=== PATIENT | female | born 1940 | race Caucasian/White ===

== ENCOUNTER 2019-11-29 01:00 | Observation (INO) | payer OTHER, SELFPAY ==
[2019-11-29] VITALS (12 sets, daily range): BP systolic 103–142; BP diastolic 45–70; PULSE 64–100; RESP 15–18; TEMP 36–36.8; O2SAT 90–96; BMI 28.8
--- NOTE | ~2019-11-29 | US_ITS ---
EXAMINATION: US right upper quadrant DATE: 11/29/2019 08:05 INDICATION: Right upper quadrant abdominal pain. TECHNIQUE: Multiple grayscale and Doppler ultrasound images of the abdomen were obtained. COMPARISON: CT abdomen and pelvis 11/29/2019 FINDINGS: The visualized portions of the head, body, and tail of the pancreas are normal. The liver d emonstrates diffuse steatosis. No liver surface nodularity. There is normal flow in main portal vein. The gallbladder is normal in size and contains gallstones. Gallbladder wall thickening is noted. The common duct is normal and measures 4 mm. IMPRESSION: 1. Acute cholecystitis. 2. Diffuse hepatic steatosis. Reviewed, dictated and finalized at location A.
--- NOTE | ~2019-11-29 | CT_ITS ---
EXAMINATION: CT abdomen pelvis w con INDICATION: Right upper quadrant pain TECHNIQUE: Computed tomographic images of the abdomen and pelvis were obtained after the administrati on of 100 cc of Omnipaque 350 intravenous contrast. The dose-length product (DLP) was 514.95 mGy-cm. Automated exposure control and iterative reconstruction technique were employed. COMPARISON: 12/11/2013 FINDINGS: Minimal dependent atelectasis is present in the lung bases. The heart size is normal. There is a moderate-sized sliding hiatal hernia. The liver, spleen, pancreas, and adrenal glands are kaila l. Stones are present in the gallbladder which is mildly distended. There appears to be a small amoun t of pericholecystic fluid and gallbladder wall thickening. The kidneys are unremarkable. No patholog ically enlarged abdominal or pelvic lymph nodes are identified. There is calcified atherosclerosis of the aorta and many of the other arteries. There is no free intraperitoneal gas or evidence of bowel obstruction. Colonic diverticulosis is present without evidence of diverticulitis. IMPRESSION: 1. Cholelithiasis with mild gallbladder distention, trace pericholecystic fluid, and possible gallbla dder wall thickening. Findings concerning for acute cholecystitis. Consider right upper quadrant ultr asound and/or nuclear hepatobiliary scan. Reviewed, dictated and finalized at location A. IMPRESSION: 1. Cholelithiasis with mild gallbladder distention, trace pericholecystic fluid , and possible gallbladder wall thickening. Findings concerning for acute erasmo cystitis. Consider right upper quadrant ultrasound and/or nuclear hepatobiliary scan.
--- NOTE | ~2019-11-29 | XR_ITS ---
EXAMINATION: XR chest 1V portable INDICATION: Wheezing TECHNIQUE: Portable AP chest at 0522 hours COMPARISON: 06/21/2015, 11/20/2009 FINDINGS: The lungs are free of acute opacities. There is no pleural effusion or pneumothorax. The ca rdiomediastinal silhouette is normal. IMPRESSION: 1. No acute cardiopulmonary abnormality. Reviewed, dictated and finalized at location A.
--- NOTE | 2019-11-29 01:12 | ECG_ITS ---
Measurements Intervals [place] Rate: 78 P: 48 AR: 180 QRS: -10 QRSD: 84 T: 60 QT: 370 QTc: 422 Interpretive Statements SINUS RHYTHM BASELINE ARTIFACT- I, III, AVR, AVL, AVF NORMAL ECG Electronically Signed On 11-29-2019 7:17:08 CDT by Dilip Menjivar D.O.
--- NOTE | 2019-11-29 01:19 | ED.ABDPAIN ---
HPI - Abdominal Pain General Chief Complaint: Chest Pain Stated Complaint: chest pain, nausea Time Seen by Provider: 11/29/19 01:07 Source: patient Mode of arrival: ambulatory Limitations: no limitations History of Present Illness HPI narrative: This patient is an 79 year old female who presents for evaluation of right flank pain . She states this pain started suddenly 2 hours ago . Her pain has been constant and it radiates to her epigastric. She is now having associated nausea and vomiting. She denies similar pain in the past, and she denies history of gallstones. She reports history of kidney stones but this pain is different. Pain is rated 10/10. Related Data Home Medications Medication Instructions Recorded Confirmed atenolol 50 mg PO DAILY 11/29/19 11/29/19 levothyroxine 50 mcg PO EVERY OTHER DAY 11/29/19 11/29/19 levothyroxine 75 mcg PO EVERY OTHER DAY 11/29/19 11/29/19 lisinopril 20 mg PO DAILY 11/29/19 11/29/19 omeprazole 40 mg PO PRN PRN 11/29/19 11/29/19 sertraline 50 mg PO HS 11/29/19 11/29/19 simvastatin 20 mg PO DAILY 11/29/19 11/29/19 Allergies Allergy/AdvReac Type Severity Reaction Status Date / Time cefadroxil Allergy Severe ITCHING/HIV Verified 11/29/19 02:09 ES Penicillins Allergy Unknown Hives Verified 11/29/19 02:09 Review of Systems Review of Systems: All systems reviewed & are unremarkable except as noted in HPI and below Constitutional: Constitutional: Denies chills and Denies fever(s) Respiratory: Respiratory: Reports dyspnea (chronic ) and Reports wheezing (chronic ) Gastrointestinal: Gastrointestinal: Reports abdominal pain, Reports nausea and Reports vomiting Genitourinary: Genitourinary: Denies hematuria, Denies dysuria and Reports flank pain Musculoskeletal: Musculoskeletal: Reports back pain PMFSH Past Medical History Medical History Asthma COPD (chronic obstructive pulmonary disease) Hypertension Hypothyroid Surgical History Surgical History H/O: section Social History Social History Smoking packs per day: 1 Smoking cigarettes per day: 20.0 Years smoked: 20 Smoking pack-years: 20.00 Smoking status: Former smoker Alcohol intake: never Substance use: never Spiritual care concerns: No Exam Const: General: alert Orientation/consciousness: patient oriented x3 Other: mild distress due to pain Eyes: EOM: EOMs intact bilaterally Resp: Effort & Inspection: normal respiratory effort and no retractions Auscultation: clear to auscultation bilaterally Cardio: Rate: regular rate Rhythm: regular rhythm Heart sounds: no murmurs GI: GI Palp: Yes Soft to palpation, Yes Tenderness to palpation present (GI), No Guarding due to palpation present (GI), No Rigid due to palpation and No Hernia present Neuro: General: patient oriented x3 and moves all extremities Course Consultations Consultation #1: I discussed case with Dr. James and he accepts admission to his service. Date: 11/29/19 Time: 03:17 Consultation #2: I discussed case with Dr. Coppola and he agrees to consult and to start antibiotics Date: 11/29/19 Time: 03:41 Vital Signs Vital signs: Vital Signs Temperature 96.8 F L 11/29/19 01:04 Pulse Rate 100 11/29/19 01:04 Respiratory Rate 18 11/29/19 01:04 Blood Pressure 142/69 H 11/29/19 01:04 Pulse Oximetry 95 11/29/19 01:04 Temperature 96.8 F L 11/29/19 01:04 Pulse Rate 80 11/29/19 04:25 Respiratory Rate 15 11/29/19 04:25 Blood Pressure 109/68 11/29/19 04:25 Pulse Oximetry 92 11/29/19 04:25 MDM - Abdominal Pain Lab Data Attestation: I reviewed the patient's lab results. Result diagrams: 11/29/19 01:16 11/29/19 01:16 Labs: Lab Results 11/29/19 11/29/19 11/29/19 Range/Units 01:16 01:16 01:16
[2019-11-29 01:21] LABS: Basophils Absolute Auto 0.1 K/mm3 (0.0-0.1); Basophils Percent Auto 0.4 % (0.2-1.2); Eosinophils Absolute Auto 0.8 K/mm3 (0-0.3); Hematocrit 48.2 % (37.0-47.0); Hemoglobin 15.5 g/dL (12.0-15.0); Immature Granulocyte Absolute 0.03 K/mm3 (0.00-0.031); Immature Granulocyte Percent A 0.2 % (0-0.5); Lymphocytes Absolute Auto 4.51 K/mm3 (0.9-3.2); Lymphocytes Percent Auto 32.4 % (18.3-44.2); Mean Corpuscular HGB Conc 32.2 g/dl (32-36); Mean Corpuscular Hemoglobin 30.3 pg (26-34); Mean Corpuscular Volume 94.1 fl (80-100); Mean Platelet Volume 11.2 fl (7.4-10.4); Monocytes Absolute Auto 1.1 K/mm3 (0.1-0.6); Neutrophils Absolute Auto 7.4 K/mm3 (1.3-6.7); Platelet Count Result 286 k/mm3 (150-375); Red Blood Count 5.12 M/mm3 (4.2-5.4); Red Cell Distribution Width 13.7 % (11.5-14.5); White Blood Count 13.9 K/mm3 (4.5-10.0)
[2019-11-29] MEDS: ONDANSETRON INJ 4 MG/2 ML VIAL IV PUSH (01:25)
[2019-11-29] MEDS: LACTATED RINGERS 1,000 ML 999 ML IV CONT (01:26)
[2019-11-29] MEDS: MORPHINE SULFATE 4 MG/ML INJ IV PUSH (01:26)
[2019-11-29 01:33] LABS: Prothrombin Time 12.4 Seconds (11.1-14.7)
[2019-11-29 01:36] LABS: Potassium 3.9 mmol/L (3.4-5.0)
[2019-11-29 01:48] LABS: Alanine Aminotransferase 41 U/L (4-35); Albumin Level 4.3 g/dL (3.5-5.1); Alkaline Phosphatase 48 U/L (38-126); Anion Gap 7 mmol/L (8-16); Aspartate Amino Transferase 51 U/L (14-36); Bilirubin,Total 0.2 mg/dL (0.2-1.3); Blood Urea Nitrogen 16 mg/dL (7-17); Calcium 9.5 mg/dL (8.4-10.2); Carbon Dioxide 27 mmol/L (22-30); Chloride 104 mmol/L (98-107); Estimated Glomerular Filt Rate 53; Glucose 184 mg/dL (65-105); Lipase 173 U/L (23-300); Sodium 138 mmol/L (137-145)
[2019-11-29 01:49] LABS: Troponin I < 0.012 ng/mL (0.000-0.034)
--- NOTE | 2019-11-29 04:13 | PM.IMHP ---
H&P: HPI History of Present Illness Date/Time: 11/29/19 04:13 Chief complaint: acute cholecystitis with cholelithiasis Narrative: This is an 79 year old female with known COPD who presented to the hospital with a complaint of right sided abdominal/flank pain that started around 11 pm this evening. Associated symptoms included nausea and multiple episodes of nonbloody emesis. She described her abdominal pain as severe and radiating around towards her back. She also has had a nonproductive cough and increased wheezing over the past few days which her daughter attributes to the patient not using her inhalers as she should be. The patient's recently 2 weeks ago and her daughter says the patient has not been taking care of herself since then. Tonight the patient denies any fevers, chills, headache, chest pain, diarrhea, rectal bleeding or LE swelling. CT abd/pelvis demonstrated a distended gallbladder with stones. The patient has been started on levaquin and metronidazole in the ER and General Surgery has been consulted. Review of Systems Review of Systems: All systems reviewed & are unremarkable except as noted in HPI and below PMFSH Past Medical History Medical History Asthma COPD (chronic obstructive pulmonary disease) Hypertension Hypothyroid Surgical History Surgical History H/O: section Family History Family History Mother Cerebrovascular accident Diabetes mellitus Social History Social History Smoking packs per day: 1 Smoking cigarettes per day: 20.0 Years smoked: 20 Smoking pack-years: 20.00 Smoking status: Former smoker Alcohol intake: never Substance use: never Spiritual care concerns: No Meds Home Medications and Allergies Home Medications Medication Instructions Recorded Confirmed Type atenolol 50 mg PO DAILY 11/29/19 11/29/19 History levofloxacin [Levaquin] 750 mg PO DAILY #5 tablet 11/29/19 Rx levothyroxine 50 mcg PO EVERY OTHER DAY 11/29/19 11/29/19 History levothyroxine 75 mcg PO EVERY OTHER DAY 11/29/19 11/29/19 History lisinopril 20 mg PO DAILY 11/29/19 11/29/19 History metronidazole [Flagyl] 500 mg PO Q8H #15 tablet 11/29/19 Rx omeprazole 40 mg PO PRN PRN 11/29/19 11/29/19 History sertraline 50 mg PO HS 11/29/19 11/29/19 History simvastatin 20 mg PO DAILY 11/29/19 11/29/19 History Allergies Allergy/AdvReac Type Severity Reaction Status Date / Time cefadroxil Allergy Severe ITCHING/HIV Verified 11/29/19 02:09 ES Penicillins Allergy Unknown Hives Verified 11/29/19 02:09 Vital Signs Vital Signs - 24 hr 11/29/19 01:04 11/29/19 01:30 11/29/19 02:00 Temperature 36.0 C L Pulse Rate 100 76 80 Respiratory Rate 18 15 17 Blood Pressure 142/69 H 115/51 L 119/50 L Pulse Oximetry 95 90 92 11/29/19 03:00 11/29/19 03:34 Temperature Pulse Rate 83 83 Respiratory Rate 16 18 Blood Pressure 122/70 112/48 L Pulse Oximetry 90 91 Exam Const: General: cooperative, alert and awake Nutritional Appearance: well nourished Orientation/consciousness: patient oriented x3 HENMT: Head: normal to inspection General nose exam: Normal external nose present Face and sinus: normal facial exam Mouth: Yes Normal oral and palatal mucosa present and Yes oropharynx normal Eyes: Pupils: Equal, round and reactive pupils present EOM: EOMs intact bilaterally Neck: Neck: supple and no JVD Thyroid: thyroid normal Lymphatic: lymphadenopathy not noted Resp: Effort & Inspection: normal respiratory effort Auscultation: clear to auscultation bilaterally Cardio: Rate: regular rate Rhythm: regular rhythm Heart sounds: no murmurs GI: Inspection: normal to inspection GI Palp: Yes abdominal tenderness (RUQ abd tenderness w/ palpation
[2019-11-29] MEDS: metroNIDAZOLE 500 MG/ISO 100ML 500 MG/100 ML BAG 100 MG IVPB ×2 (04:21→12:49)
--- NOTE | 2019-11-29 04:38 | ADMGEN ---
This patient, Dalila Rowe, was admitted to [facility] Surg Room 312-01. Patient/family oriented to hospital policies and general routines including ID bracelet, bed and alarms, visiting hours, pain management, procedures, bathroom and other care routines, personal items, smoking policy, room service/diet, and visiting hours. Valuables list has been completed. Information on how to activate the Rapid Response Team has been discussed. Patient/Family are encouraged to report perceived risks to care and to ask questions if they do not understand what they are told or what they should do.
[2019-11-29 04:43] LABS: Troponin I < 0.012 ng/mL (0.000-0.034)
[2019-11-29] MEDS: SODIUM CHLORIDE 0.9% IV 1,000 ML 125 ML IV CONT ×2 (05:06→15:42)
[2019-11-29 07:52] LABS: Troponin I < 0.012 ng/mL (0.000-0.034)
[2019-11-29] MEDS: IPRATROPIUM BR 0.02% INH SOLN 0.5 MG/2.5 ML VIAL INHALATION ×2 (08:20→14:07)
[2019-11-29] MEDS: ALBUTEROL SULFATE NEB 2.5 MG/0.5 ML INH 5 MG INHALATION ×2 (08:20→14:07)
[2019-11-29 08:53] LABS: Basophils Percent Auto 0.4 % (0.2-1.2); Eosinophils Absolute Auto 0.2 K/mm3 (0-0.3); Eosinophils Percent Auto 2.4 % (0-4.4); Hematocrit 42.5 % (37.0-47.0); Hemoglobin 13.6 g/dL (12.0-15.0); Immature Granulocyte Absolute 0.03 K/mm3 (0.00-0.031); Immature Granulocyte Percent A 0.3 % (0-0.5); Lymphocytes Absolute Auto 1.54 K/mm3 (0.9-3.2); Lymphocytes Percent Auto 16.7 % (18.3-44.2); Mean Corpuscular Volume 93.8 fl (80-100); Mean Platelet Volume 11.4 fl (7.4-10.4); Monocytes Absolute Auto 0.6 K/mm3 (0.1-0.6); Monocytes Percent Auto 6.9 % (2.6-8.5); Neutrophils Absolute Auto 6.8 K/mm3 (1.3-6.7); Neutrophils Percent Auto 73.3 % (45.5-73.1); Platelet Count Result 183 k/mm3 (150-375); Red Blood Count 4.53 M/mm3 (4.2-5.4); Red Cell Distribution Width 13.8 % (11.5-14.5); White Blood Count 9.2 K/mm3 (4.5-10.0)
[2019-11-29 09:05] LABS: Alanine Aminotransferase 34 U/L (4-35); Albumin Level 3.7 g/dL (3.5-5.1); Alkaline Phosphatase 36 U/L (38-126); Anion Gap 5 mmol/L (8-16); Aspartate Amino Transferase 40 U/L (14-36); Bilirubin,Total 0.3 mg/dL (0.2-1.3); Blood Urea Nitrogen 13 mg/dL (7-17); Calcium 8.7 mg/dL (8.4-10.2); Carbon Dioxide 26 mmol/L (22-30); Chloride 105 mmol/L (98-107); Estimated CRCL calculation 37 ml/min; Estimated Glomerular Filt Rate 60; Glucose 104 mg/dL (65-105); Magnesium 1.9 mg/dL (1.6-2.3); Potassium 4.3 mmol/L (3.4-5.0); Sodium 136 mmol/L (137-145)
[2019-11-29] MEDS: LEVOTHYROXINE SODIUM INJ 100 MCG/5 ML VIAL 25 MCG IV PUSH (10:44)
[2019-11-29] MEDS: methylPREDNISolone SOD SUCC 125 MG VIAL 60 MG IV PUSH (10:45)
--- NOTE | 2019-11-29 12:04 | PM.CNGS ---
Assessment and Plan Assessment and plan (1) Acute calculous cholecystitis: Code(s): K80.00 - Calculus of gallbladder with acute cholecystitis without obstruction Status: Acute Assessment and Plan: I have reviewed the CT and discussed the findings with the patient. She has evidence of acute cholecystitis, but her symptoms are improving. Since this was relatively acute onset and has already resolved, will try to give patient a low-fat diet and see if she can tolerate this. I am okay with her trying to avoid surgery at this time since this is her 1st episode. I discussed that proceeding with surgery is an option and also discussed that if she continues to have recurrent attacks of pain, then I would likely recommend laparoscopic cholecystectomy. (2) Hypertension: Qualifiers: Hypertension type: unspecified Qualified Code(s): I10 - Essential (primary) hypertension Code(s): I10 - Essential (primary) hypertension Status: Chronic (3) COPD (chronic obstructive pulmonary disease): Code(s): J44.9 - Chronic obstructive pulmonary disease, unspecified Status: Acute (4) Hypothyroid: Qualifiers: Hypothyroidism type: unspecified Qualified Code(s): E03.9 - Hypothyroidism, unspecified Code(s): E03.9 - Hypothyroidism, unspecified Status: Chronic History of Present Illness Consult details Consult date: 11/29/19 Requesting physician: Rosalva Manriquez MD Narrative: This is an 79-year-old woman who presented to the emergency department overnight with acute onset of abdominal pain around midnight. She has never experienced pain like this in the past. She had eaten a fairly regular dinner last night with some tomatoes and a chicken gina. Her pain was located in the upper abdomen and she was also experiencing nausea and vomiting. She denies any fevers or chills. She denied any change in bowel habits. In the emergency department she was noted to have a slightly elevated white blood count and CT showed evidence of acute calculous cholecystitis. She was admitted for further treatment. Since being admitted her pain has resolved completely. She states that she really does not want to have surgery of possible as she just recently dealt with the passing of her . Review of Systems Review of Systems: All systems reviewed & are unremarkable except as noted in HPI and below Constitutional: Constitutional: Denies chills and Denies fever(s) Eyes: Eyes: Denies change in vision ENT: Denies hearing loss, Denies neck pain and Denies sore throat Cardiovascular: Cardiovascular: Denies chest pain and Denies dyspnea Respiratory: Respiratory: Denies cough, Denies dyspnea and Denies wheezing Gastrointestinal: Gastrointestinal: Reports as per HPI Genitourinary: Genitourinary: Denies hematuria and Denies dysuria Musculoskeletal: Musculoskeletal: Denies arthralgias, Denies joint swelling and Denies neck pain Allergic/Immunologic: Allergic/Immunologic: Denies wheezing [facility] Past Medical History Medical History Asthma COPD (chronic obstructive pulmonary disease) Hypertension Hypothyroid Surgical History Surgical History H/O: section Family History Family History Mother Cerebrovascular accident Diabetes mellitus Social History Social History Smoking packs per day: 1 Smoking cigarettes per day: 20.0 Years smoked: 20 Smoking pack-years: 20.00 Smoking status: Former smoker Alcohol intake: never Substance use: never Spiritual care concerns: No Meds Home Medications and Allergies Home Medications Medication Instructions Recorded Confirmed Type atenolol 50 mg PO DAILY 11/29/19 11/29/19 History levothyrox
--- NOTE | 2019-11-29 16:27 | PM.DS ---
DS: Admitting Diagnosis Admitting Diagnosis Admitting Diagnosis: acute cholecystitis with cholelithiasis DS: Discharge Diagnosis Discharge Diagnosis (1) Acute calculous cholecystitis: Code(s): K80.00 - Calculus of gallbladder with acute cholecystitis without obstruction Status: Acute Assessment and Plan: As evident on CT and US imaging. Dr. Coppola consulted from the ED; appreciate recommendations. Patient okay for discharge from Surgical standpoint as she had made significant improvement overnight. Leukocytosis improved. Will discharge today with 5 days levaquin and flagyl F/u with Dr. Coppola per his instructions Follow up with PCP (2) COPD (chronic obstructive pulmonary disease): Code(s): J44.9 - Chronic obstructive pulmonary disease, unspecified Status: Acute Assessment and Plan: Patient apparently symptomatic yesterday, but was apparently noncompliant with medications. Today's exam shows slight wheeze in RUL field, but otherwise grossly unremarkable Encouraged compliance on home medications Discharge home today (3) Hypertension: Qualifiers: Hypertension type: unspecified Qualified Code(s): I10 - Essential (primary) hypertension Code(s): I10 - Essential (primary) hypertension Status: Chronic Assessment and Plan: BP reviewed and reasonable during stay. Will continue home meds at discharge (4) Hypothyroid: Qualifiers: Hypothyroidism type: unspecified Qualified Code(s): E03.9 - Hypothyroidism, unspecified Code(s): E03.9 - Hypothyroidism, unspecified Status: Chronic Assessment and Plan: TSH wnl. Continue levothyroxine DS: Summary Hospital Course Reason for hospitalization: RUQ pain; acute cholecystitis with cholelithiasis; COPD exacerbation Hospital Course: Patient is a 79 yo F with known COPD who presented to the hospital on 11/28 with a complaint of right sided abdominal/flank pain that started around 11 pm that evening. While in the ED, she was found to have CT findings suspicious for acute cholecystitis. General Surgery was consulted from the ED and patient placed on Levaquin and Flagyl. Patient admitted under this setting. Please see H&P for further details. Presenting VS: Temp Pulse Resp BP Pulse Ox 96.8 F L 100 18 142/69 H 95 11/29/19 01:04 11/29/19 01:04 11/29/19 01:04 11/29/19 01:04 11/29/19 01:04 Presenting Pertinent labs: WBC 13.9k, AST 51, ALT 41. Troponins negative x3. CBC, chemistry, coag otherwise unremarkable Micro: none Imaging: Chest X-Ray 11/29/19 07:49 IMPRESSION: 1. No acute cardiopulmonary abnormality. Abdomen/Pelvis CT 11/29/19 08:39 IMPRESSION: 1. Cholelithiasis with mild gallbladder distention, trace pericholecystic fluid, and possible gallbladder wall thickening. Findings concerning for acute cholecystitis. Consider right upper quadrant ultrasound and/or nuclear hepatobiliary scan. Upper Quadrant Ultrasound 11/29/19 09:58 IMPRESSION: 1. Acute cholecystitis. 2. Diffuse hepatic steatosis. ECG: Interpretive Statements SINUS RHYTHM BASELINE ARTIFACT- I, III, AVR, AVL, AVF NORMAL ECG Patient was admitted to the hospitalist service for further evaluation; Dr. Coppola (General Surgery) evaluated patient on 11/28 and felt that patient had significant clinical improvement, advanced her diet which she tolerated well, and felt she was okay for discharge from a surgical standpoint with follow up with him as an outpatient. She was to be discharged on 5 days of Flagyl and Levaquin. Of note, she was noted to have significant wheezing on admission and was given steroids with significant improvement in her respiratory status. She was reportedly not using her home COPD meds as directed at home per family. Plan was for her to follow up with her PC
== END 2019-11-29 18:03 | disposition home or self-care (01) ==
LOC: ANHED 01:58 → ANH3MEDSUR 04:16
PROVIDERS: Physician Assistant; Admitting Provider Family Medicine; Emergency Provider General Practice; PCP Internal Medicine; Visit Provider Internal Medicine
DX: K80.00 Calculus of gallbladder with acute cholecystitis without obstruction (principal); J44.1 Chronic obstructive pulmonary disease with (acute) exacerbation; I10 Essential (primary) hypertension; E03.9 Hypothyroidism, unspecified; Z87.891 Personal history of nicotine dependence; Z79.899 Other long term (current) drug therapy; Z88.0 Allergy status to penicillin; Z88.1 Allergy status to other antibiotic agents
CPT/HCPCS: 36415; 71045; 74177; 76705; 80048; 80053; 80076; 83690; 83735; 84443; 84484; 85025; 85610; 85730; 93005; 94640; 96361; 96374; 96375; 96376; 99285; G0378; J0131; J1956; J2270; J2405; J2930; J7030; J7120; Q9967

== ENCOUNTER 2021-06-25 21:07 | Observation (INO) | payer OTHER, SELFPAY ==
--- NOTE | ~2021-06-25 | XR_ITS ---
XR chest 1V portable DATE: 06/25/2021 22:04 INDICATION: Postprandial epigastric pain. COPD. Hypertension. TECHNIQUE: Portable upright AP chest on 06/17/2021 at 2159 hours COMPARISON: Portable AP chest on 11/29/2019 at 0522 hours FINDINGS: Heart size appears enlarged. Is aortic arch calcification. Large hiatal hernia. No pulmonary infiltrate or consolidation, pleural effusion or pulmonary vascular congestion or pneumo thorax. Diffuse osteopenia. IMPRESSION: Cardiomegaly, aortic atherosclerosis Prominent hiatal hernia No active pulmonary disease Reviewed, dictated and finalized at location A.
--- NOTE | ~2021-06-25 | CT_ITS ---
EXAMINATION: CT abdomen pelvis w con DATE: 06/25/2021 22:42 INDICATION: Acute onset of postprandial generalized abdominal pain tonight. Nausea, dry heaves. TECHNIQUE: Computed tomography (CT) of the abdomen and pelvis was performed with 100 CC Omnipaque 350 intravenous contrast. Automated exposure control and iterative reconstruction technique were employe d. Exam dose: 466.31 mGy-cm total exam DLP. COMPARISON: 11/29/2019 right upper quadrant abdominal ultrasound 11/29/2019 CT abdomen pelvis FINDINGS: Mild bibasilar dependent lower lobe atelectasis. Cardiomegaly. Coronary artery calcification. Large hiatal hernia. Diffuse hepatic steatosis. Multiple stones are noted in the dependent gallbladder. No gallbladder wall thickening, pericholecyst ic fluid or fat stranding. No bile duct dilatation. No pancreatic mass lesion or calcification or ductal dilatation. Normal splenic size. Normal morphology of the adrenal glands. No suspicious renal mass lesion is evident. No urinary tract calculus or hydroureteronephrosis. There is diverticulosis of the ilium. There is some free fluid in the lower mid and right abdomen. There is diverticulosis of left and right colon. No bowel obstruction or intraperitoneal free air is detected. There is extensive atherosclerotic calcification of the abdominal aorta but no abdominal aortic aneur ysm. No intraperitoneal or retroperitoneal or pelvic mass lesion or adenopathy is noted. The urinary bladder, uterus and adnexal areas are unremarkable other than some fluid in the right adnexal area. No suspicious osteolytic or osteoblastic lesions are noted. IMPRESSION: Diverticulosis of the ilium Diverticulosis of left and right colon Cholelithiasis Nonspecific mild free fluid accumulation in the mid and right lower abdomen and pelvis Large hiatal hernia Reviewed, dictated and finalized at [facility] Reviewed, dictated and finalized at [facility].
[2021-06-25 21:05] VITALS: BP 115/55; PULSE 76; RESP 19; TEMP 36.6; O2SAT 94
[2021-06-25] MEDS: ONDANSETRON INJ 4 MG/2 ML VIAL IV PUSH (21:50)
[2021-06-25] MEDS: SODIUM CHLORIDE 0.9% IV 1,000 ML 999 ML IV CONT (21:50)
[2021-06-25] MEDS: HYDROmorphone HCL INJ (*CRX) 1 MG/ML SYR IV PUSH (21:51)
[2021-06-25 22:05] VITALS: O2SAT 75
[2021-06-25 22:09] LABS: Basophils Percent Auto 0.2 % (0.2-1.2); Eosinophils Absolute Auto 0.9 K/mm3 (0-0.3); Eosinophils Percent Auto 6.5 % (0-4.4); Hematocrit 44.3 % (37.0-47.0); Hemoglobin 14.5 g/dL (12.0-15.0); Immature Granulocyte Absolute 0.02 K/mm3 (0.00-0.031); Immature Granulocyte Percent A 0.1 % (0-0.5); Lymphocytes Absolute Auto 2.95 K/mm3 (0.9-3.2); Lymphocytes Percent Auto 20.8 % (18.3-44.2); Mean Corpuscular HGB Conc 32.7 g/dl (32-36); Mean Corpuscular Hemoglobin 30.1 pg (26-34); Mean Corpuscular Volume 91.9 fl (80-100); Mean Platelet Volume 11.5 fl (7.4-10.4); Monocytes Absolute Auto 0.5 K/mm3 (0.1-0.6); Monocytes Percent Auto 3.8 % (2.6-8.5); Neutrophils Absolute Auto 9.7 K/mm3 (1.3-6.7); Neutrophils Percent Auto 68.6 % (45.5-73.1); Platelet Count Result 293 k/mm3 (150-375); Red Blood Count 4.82 M/mm3 (4.2-5.4); Red Cell Distribution Width 15.3 % (11.5-14.5); White Blood Count 14.2 K/mm3 (4.5-10.0)
[2021-06-25 22:10] VITALS: BP 110/55; PULSE 87; RESP 16; O2SAT 95
[2021-06-25 22:15] LABS: Lactic Acid Reflex 1.5 mmol/L (0.7-2.1)
[2021-06-25 22:16] LABS: Alanine Aminotransferase 32 U/L (4-35); Albumin Level 4.4 g/dL (3.5-5.1); Alkaline Phosphatase 54 U/L (38-126); Anion Gap 8 mmol/L (8-16); Aspartate Amino Transferase 47 U/L (14-36); Bilirubin,Total 0.5 mg/dL (0.2-1.3); Blood Urea Nitrogen 17 mg/dL (7-17); Calcium 9.6 mg/dL (8.4-10.2); Carbon Dioxide 25 mmol/L (22-30); Chloride 104 mmol/L (98-107); Estimated CRCL calculation 32 ml/min; Estimated Glomerular Filt Rate 48; Glucose 177 mg/dL (65-110); Lipase 149 U/L (23-300); Potassium 4.1 mmol/L (3.4-5.0); Sodium 137 mmol/L (137-145)
[2021-06-25 22:28] LABS: Troponin I < 0.012 ng/mL (0.000-0.034)
--- NOTE | 2021-06-25 22:38 | ED.GENADULT ---
HPI - General Adult General Chief complaint: Abdominal Pain Stated complaint: ABD PAIN, DISTENED, DRY HEAVES Time Seen by Provider: 06/25/21 21:18 History of Present Illness HPI narrative: Patient is a 80-year-old female who presents to emergency department with chief complaint of abdominal pain. Patient reports that the pain began around 5 PM started suddenly describes it as a sharp-like pain that is diffuse throughout her abdomen. The patient states the pain is worse with movement worse with inspiration and reports that she has had some nausea with this and had an episode of vomiting. Patient reports he feels as though she needs to go to the bathroom but Related Data Home Medications Medication Instructions Recorded Confirmed atenolol 50 mg PO DAILY 11/29/19 06/26/21 levothyroxine 50 mcg PO EVERY OTHER DAY 11/29/19 06/26/21 levothyroxine 75 mcg PO EVERY OTHER DAY 11/29/19 06/26/21 lisinopril 20 mg PO DAILY 11/29/19 06/26/21 omeprazole 40 mg PO PRN PRN 11/29/19 06/26/21 sertraline 50 mg PO HS 11/29/19 06/26/21 simvastatin 20 mg PO DAILY 11/29/19 06/26/21 albuterol 1 mcg INHALATION Q2-6H PRN 06/26/21 06/26/21 metformin 500 mg PO DAILY 06/26/21 06/26/21 trazodone 50 mg PO HS 06/26/21 06/26/21 Allergies Allergy/AdvReac Type Severity Reaction Status Date / Time cefadroxil Allergy Severe ITCHING/HIV Verified 06/25/21 21:17 ES Penicillins Allergy Unknown Hives Verified 06/25/21 21:17 Review of Systems Review of Systems: A 10 system review of systems was completed on the patient and is negative except for what is stated in the HPI. Nursing and ancillary documentation was reviewed. FORMERLY [facility], [facility]–1983 Past Medical History Medical History (Updated 06/26/21 @ 06:49 by Rajiv Sarah MD) Asthma COPD (chronic obstructive pulmonary disease) Hypertension Hypothyroid Surgical History Surgical History H/O: section Family History Family History Mother Cerebrovascular accident Diabetes mellitus Social History Social History Smoking packs per day: 1 Smoking cigarettes per day: 20.0 Years smoked: 13 Smoking pack-years: 13.00 Smoking status: Former smoker Tobacco type: cigarettes Alcohol intake: never Substance use: never Spiritual care concerns: No Exam Narrative: GENERAL: Well-appearing, well-nourished, and in no acute distress. HEAD: Normocephalic, atraumatic. EYES: PERRLA and EOMI. ENT: Nares clear, no rhinorrhea or epistaxis. Mucous membranes moist. NECK: Supple. CHEST: Clear to auscultation. No respiratory distress. HEART: Regular rate and rhythm. No murmur heard. Normal peripheral pulses. ABDOMEN: Soft, diffusely tender to palpation, nondistended, normal active bowel sounds. EXTREMITIES: Normal range of motion. No edema. SKIN: Warm, dry, no rash. NEURO: No focal deficits. Alert and oriented x3. PSYCH: Normal mood and affect. Course Course Emergency Course: Patient's pain was improved with Dilaudid. Patient CT scan showed evidence of free fluid in the abdomen the case was discussed with surgery on-call and the patient was started on IV antibiotics and the patient will be admitted to the hospitalist service for observation Vital Signs Vital signs: Vital Signs Temperature 36.6 C 06/25/21 21:05 Pulse Rate 76 06/25/21 21:05 Respiratory Rate 19 06/25/21 21:05 Blood Pressure 115/55 L 06/25/21 21:05 Pulse Oximetry 94 06/25/21 21:05 Temperature 36.1 C L 06/26/21 02:44 Pulse Rate 91 06/26/21 02:44 Respiratory Rate 20 06/26/21 02:44 Blood Pressure 153/46 H 06/26/21 02:44 Pulse Oximetry 99 06/26/21 03:21 Medical Decision Making Vital Signs Vital Signs: Vital Signs Temperature 36.6 C 06/25/21 21:05 Pulse Rate 76 06/25/21 21:05 Respiratory Rate
[2021-06-25 23:17] VITALS: O2SAT 98
[2021-06-25 23:31] LABS: Add Urine Microscopic? YES; Appearance Urine Cloudy (Clear); Bacteria Urine Trace /hpf; Bilirubin Urine Negative (Negative); Blood Urine Negative (Negative); Color Urine Straw (Yellow); Glucose Urine UA Negative (Negative); Ketones Urine Negative (Negative); Leukocyte Esterase Ur Trace LEU/UL (Negative); Mucus Urine Few /lpf; Nitrate Urine Negative (Negative); Protein Urine Negative (Negative); Squamous Epithelial Cell Urine Many /hpf (Few); Urobilinogen Urine Negative mg/dL (<2.0)
[2021-06-26] VITALS (18 sets, daily range): BP systolic 117–153; BP diastolic 38–65; PULSE 64–93; RESP 14–20; TEMP 35.9–36.8; O2SAT 88–99; BMI 28.3
[2021-06-26] MEDS: metroNIDAZOLE 500 MG/ISO 100ML 500 MG/100 ML BAG 100 MG IVPB ×5 (01:18→23:18)
[2021-06-26] MEDS: SODIUM CHLORIDE 0.9% IV 1,000 ML 125 ML IV CONT ×3 (02:35→23:18)
[2021-06-26] MEDS: ONDANSETRON INJ 4 MG/2 ML VIAL IV PUSH ×2 (03:03→08:18)
--- NOTE | 2021-06-26 03:24 | PC.NURSE ---
This patient, Dalila Rowe, was admitted to Medical Room 341-01. Patient/family oriented to hospital policies and general routines including ID bracelet, bed and alarms, visiting hours, pain management, procedures, bathroom and other care routines, personal items, smoking policy, room service/diet, and visiting hours. Information on how to activate the Rapid Response Team has been discussed. Patient/Family are encouraged to report perceived risks to care and to ask questions if they do not understand what they are told or what they should do.
[2021-06-26 07:33] LABS: Basophils Percent Auto 0.2 % (0.2-1.2); Eosinophils Percent Auto 0.1 % (0-4.4); Hematocrit 38.9 % (37.0-47.0); Hemoglobin 12.2 g/dL (12.0-15.0); Immature Granulocyte Absolute 0.05 K/mm3 (0.00-0.031); Immature Granulocyte Percent A 0.4 % (0-0.5); Mean Corpuscular HGB Conc 31.4 g/dl (32-36); Mean Corpuscular Hemoglobin 29.5 pg (26-34); Mean Corpuscular Volume 94.2 fl (80-100); Mean Platelet Volume 10.9 fl (7.4-10.4); Monocytes Absolute Auto 0.5 K/mm3 (0.1-0.6); Monocytes Percent Auto 3.7 % (2.6-8.5); Neutrophils Absolute Auto 10.9 K/mm3 (1.3-6.7); Neutrophils Percent Auto 87.6 % (45.5-73.1); Platelet Count Result 185 k/mm3 (150-375); Red Blood Count 4.13 M/mm3 (4.2-5.4); Red Cell Distribution Width 15.3 % (11.5-14.5); White Blood Count 12.5 K/mm3 (4.5-10.0)
[2021-06-26 07:45] LABS: Alanine Aminotransferase 27 U/L (4-35); Albumin Level 3.8 g/dL (3.5-5.1); Alkaline Phosphatase 36 U/L (38-126); Anion Gap 7 mmol/L (8-16); Aspartate Amino Transferase 37 U/L (14-36); Bilirubin,Total 0.6 mg/dL (0.2-1.3); Blood Urea Nitrogen 17 mg/dL (7-17); Calcium 8.5 mg/dL (8.4-10.2); Carbon Dioxide 26 mmol/L (22-30); Chloride 104 mmol/L (98-107); Estimated CRCL calculation 34 ml/min; Estimated Glomerular Filt Rate 53; Glucose 173 mg/dL (65-110); Potassium 4.6 mmol/L (3.4-5.0); Sodium 137 mmol/L (137-145)
[2021-06-26] MEDS: LEVOTHYROXINE SODIUM 75 MCG TABLET PO (08:20)
[2021-06-26] MEDS: atenoloL 50 MG TABLET PO (08:21)
--- NOTE | 2021-06-26 08:47 | PM.IMHP ---
H&P: HPI History of Present Illness Date/Time: 06/26/21 08:47 Chief Complaint: abdominal pain Narrative: Pt is an 80 yo female w/ hx of HTN, HLD, asthma, COPD, pre DM, who presented to the ED last night for evaluation of abdominal pain. She states she was eating dinner last night around 5 pm when she developed sudden onset epigastric pain which she describes as a sharp pressure. Pain is constant but waxes and wanes. It does radiate down to the lower abdomen as well. She complaints of nausea with several episodes of emesis last night and this morning. She reports while in the ambulance yesterday the pain was terrible whenever they would hit a bump. She states her pain is controlled currently after receiving Dialudid in the ED. She denies diarrhea, in fact she states she has not had a BM for 2 days which is unusual for her. She also does not think she has been passing flatus. She reports decreased urination but denies dysuria or hematuria. She reports sob and wheezing which is at her baseline with her COPD and seasonal allergies. She has also had some increased sneezing, rhinorrhea, sore throat, and intermittent non productive cough. She has been using her rescue inhaler twice daily over the past week or so. CT performed in the ED showed non specific free fluid in the abdomen along with cholelithiasis, diverticulosis, and a large hiatal hernia. Pt was started on broad spectrum abx, general surgery was consulted from the ED, and patient was admitted as observation status. Had at length discussion with patient regarding code status, and she wishes to be made DNR. Review of Systems Review of Systems: General: Denies fevers, chills, bodyaches Eyes: Denies vision changes or eye pain ENT: + nasal congestion, + sore throat Respiratory: + cough, + shortness of breath Cardiovascular: Denies chest pain, palpitations, or lower extremity edema Gastrointestinal: + abdominal pain, + vomiting, denies diarrhea Genitourinary: Denies dysuria or urinary frequency, +decreased urination Musculoskeletal: +R shoulder pain Neurological: Denies headache, paraesthesias, or motor weakness Integumentary: Denies rash or other skin lesions Psychiatric: Denies SI/[facility] Past Medical History Medical History (Updated 06/26/21 @ 09:09 by Jessenia Garner PA-C) Asthma COPD (chronic obstructive pulmonary disease) Hyperlipidemia Hypertension Hypothyroid Palpitation Pre-diabetes Surgical History Surgical History (Updated 06/26/21 @ 09:03 by Jessenia Garner PA-C) H/O: section Status post left breast lumpectomy Family History Family History (Updated 06/26/21 @ 09:05 by Jessenia Garner PA-C) Mother Cerebrovascular accident Diabetes mellitus Father Lung cancer Social History Social History (Updated 06/26/21 @ 09:06 by Jessenia Garner PA-C) Social History: Lives alone, of 62 years in 2019, has 2 children and 2 grandchildren that live nearby. She wishes that her code status be DNR. Smoking packs per day: 1 Smoking cigarettes per day: 20.0 Years smoked: 13 Smoking pack-years: 13.00 Smoking status: Former smoker Tobacco type: cigarettes Alcohol intake: never Substance use: never Living arrangements: alone Occupation/Education: retired Gender identity (if verbalized by the patient): Female Spiritual care concerns: No Meds Home Medications and Allergies Home Medications Medication Instructions Recorded Confirmed Type atenolol 50 mg PO DAILY 11/29/19 06/26/21 History levothyroxine 50 mcg PO EVERY OTHER DAY 11/29/19 06/26/21 History levothyroxine 75 mcg PO EVERY OTHER DAY 11/29/19 06/26/21 History lisinopril 20 mg PO DAILY 11/29/19 06/26/21 History omeprazole 40 mg PO PRN PRN 11/29/19 06/26/21 History sertraline 50 mg PO HS 11/29/19 06/26/21 History simvastatin 20 mg PO DAILY 11/29/19 06/26/21 History albuterol 1 mcg INHALATION Q2-6H PRN 06/26/21 06/26/21 Hist
--- NOTE | 2021-06-26 10:27 | PM.CNGS ---
Assessment and Plan Assessment and plan (1) Abnormal CT scan: Code(s): R93.89 - Abnormal findings on diagnostic imaging of other specified body structures Status: Acute Assessment and Plan: Patient presented with nausea, vomiting, and upper abdominal pain that migrated to the lower abdomen, worse on the right side. She is now complaining of primarily lower abdominal pain and she is tender throughout her entire abdomen, but worst over the RLQ. CT scan showed a small amount of free fluid in the mid to right lower abdomen. No free intraperitoneal air or other acute findings on the initial report. I reviewed the CT scan with the Radiologist this morning. He is unable to visualize the appendix, which she denies being surgically absent, and there are no other findings of inflammation near the cecum to suggest possible acute appendicitis. She does, however, have extensive small bowel diverticulosis predominately in the ileum, as well as diverticulosis of the left and right colon. There is a small amount of fat stranding around a large diverticulum in the ileum that is in the right mid abdomen, which could suggest acute small bowel diverticulitis without perforation. This is a potential cause for her symptoms and leukocytosis. She is showing some signs of clinical improvement this morning. Her WBC count is down to 12,000 and her abdominal pain has improved. There is no indication for surgical treatment at this time. We would recommend to continue with medical management for now and close monitoring. Continue empirically treating with IV Levaquin and Flagyl due to her penicillin allergy. Will keep her NPO with IV fluids for now due to the persistent nausea and vomiting. Continue IV Zofran, and the Hospitalist is adding an additional antiemetic as well. Will repeat labs tomorrow and continue to monitor with serial abdominal exams. (2) Abdominal pain: Code(s): R10.9 - Unspecified abdominal pain Status: Acute Assessment and Plan: Initially upper abdominal pain that migrated to the lower abdomen, worse on the right side. Improving with current treatment. Etiology unclear, but could be related to small bowel diverticulitis, gastroenteritis, or another intraabdominal infection. See plan above. (3) Cholelithiasis: Code(s): K80.20 - Calculus of gallbladder without cholecystitis without obstruction Status: Acute Assessment and Plan: Cholelithiasis noted in the dependent aspect of the gallbladder, but an otherwise normal appearing gallbladder on CT. It does not appear that her symptoms are related to her gallbladder after reviewing her CT scan and examining the patient. Recommend continuing to follow a low fat diet after discharge to prevent any future issues related to her gallstones. (4) COPD (chronic obstructive pulmonary disease): Code(s): J44.9 - Chronic obstructive pulmonary disease, unspecified Status: Acute (5) Hypertension: Qualifiers: Hypertension type: unspecified Qualified Code(s): I10 - Essential (primary) hypertension Code(s): I10 - Essential (primary) hypertension Status: Chronic (6) Pre-diabetes: Code(s): R73.03 - Prediabetes Status: Acute Additional Plan I have discussed the patient's case and plan of care with Dr. Coppola. Thank you for allowing us to see the patient in consultation and we will continue to follow along with you. History of Present Illness Consult details Consult date: 06/26/21 Reason for consult: abdominal pain (Abdominal pain, small amount of free fluid noted on CT of mid to right lower abdomen) Requesting physician: Rajiv Sarah MD Narrative: This is an 80-year-old female with a history of COPD, asthma, hypertension, and prediabetes, who presented to the emergency department with complaints of abdominal pain and vomiting. She reports that she had a sudden onset of severe abdominal pain across her upper abdomen.
[2021-06-26 11:13] LABS: Glucose Point of Care 115 mg/dl (65-105)
[2021-06-26] MEDS: PANTOPRAZOLE SODIUM IV 40 MG VIAL IV PUSH (12:08)
[2021-06-26] MEDS: ALBUTEROL SULFATE NEB 2.5 MG/0.5 ML INH INHALATION ×2 (14:16→20:26)
[2021-06-26] MEDS: IPRATROPIUM BR 0.02% INH SOLN 0.5 MG/2.5 ML VIAL INHALATION ×2 (14:16→20:26)
[2021-06-26 16:36] LABS: Glucose Point of Care 101 mg/dl (65-105)
[2021-06-26] MEDS: lisinopriL 20 MG TABLET PO (17:01)
[2021-06-26] MEDS: FLUTICASONE PROP 44 MCG (*SP) 10.6 GM 2 PUFF INHALATION (20:26)
[2021-06-26] MEDS: SERTRALINE HCL 50 MG TABLET PO (20:41)
[2021-06-26 21:14] LABS: Glucose Point of Care 109 mg/dl (65-105)
[2021-06-27] VITALS (10 sets, daily range): BP systolic 115–132; BP diastolic 48–58; PULSE 68–82; RESP 16–18; TEMP 36.1–36.8; O2SAT 92–96
[2021-06-27] MEDS: IPRATROPIUM BR 0.02% INH SOLN 0.5 MG/2.5 ML VIAL INHALATION ×2 (03:03→09:13)
[2021-06-27] MEDS: ALBUTEROL SULFATE NEB 2.5 MG/0.5 ML INH INHALATION ×2 (03:03→09:13)
[2021-06-27] MEDS: metroNIDAZOLE 500 MG/ISO 100ML 500 MG/100 ML BAG 100 MG IVPB ×4 (05:17→23:54)
[2021-06-27 05:38] LABS: Basophils Percent Auto 0.3 % (0.2-1.2); Eosinophils Absolute Auto 0.2 K/mm3 (0-0.3); Eosinophils Percent Auto 3.2 % (0-4.4); Hematocrit 34.3 % (37.0-47.0); Hemoglobin 10.9 g/dL (12.0-15.0); Immature Granulocyte Absolute 0.02 K/mm3 (0.00-0.031); Immature Granulocyte Percent A 0.3 % (0-0.5); Lymphocytes Absolute Auto 1.19 K/mm3 (0.9-3.2); Lymphocytes Percent Auto 20.3 % (18.3-44.2); Mean Corpuscular HGB Conc 31.8 g/dl (32-36); Mean Corpuscular Hemoglobin 29.9 pg (26-34); Mean Platelet Volume 11.5 fl (7.4-10.4); Monocytes Absolute Auto 0.3 K/mm3 (0.1-0.6); Monocytes Percent Auto 5.6 % (2.6-8.5); Neutrophils Absolute Auto 4.1 K/mm3 (1.3-6.7); Neutrophils Percent Auto 70.3 % (45.5-73.1); Platelet Count Result 145 k/mm3 (150-375); Red Blood Count 3.65 M/mm3 (4.2-5.4); Red Cell Distribution Width 15.6 % (11.5-14.5); White Blood Count 5.9 K/mm3 (4.5-10.0)
[2021-06-27 05:44] LABS: Alanine Aminotransferase 20 U/L (4-35); Albumin Level 3.3 g/dL (3.5-5.1); Alkaline Phosphatase 36 U/L (38-126); Anion Gap 7 mmol/L (8-16); Aspartate Amino Transferase 24 U/L (14-36); Bilirubin,Total 0.8 mg/dL (0.2-1.3); Blood Urea Nitrogen 10 mg/dL (7-17); Calcium 8.1 mg/dL (8.4-10.2); Carbon Dioxide 23 mmol/L (22-30); Chloride 111 mmol/L (98-107); Estimated CRCL calculation 31 ml/min; Estimated Glomerular Filt Rate 48; Glucose 107 mg/dL (65-110); Potassium 3.3 mmol/L (3.4-5.0); Sodium 141 mmol/L (137-145)
[2021-06-27 07:28] LABS: Hemoglobin A1C 6.4 % (<5.7)
[2021-06-27 07:50] LABS: Glucose Point of Care 100 mg/dl (65-105)
[2021-06-27] MEDS: PANTOPRAZOLE SODIUM IV 40 MG VIAL IV PUSH (08:13)
[2021-06-27] MEDS: atenoloL 50 MG TABLET PO (08:13)
[2021-06-27] MEDS: SODIUM CHLORIDE 0.9% IV 1,000 ML 125 ML IV CONT (08:13)
[2021-06-27] MEDS: LEVOTHYROXINE SODIUM 50 MCG TABLET PO (08:13)
[2021-06-27] MEDS: FLUTICASONE PROP 44 MCG (*SP) 10.6 GM 2 PUFF INHALATION ×2 (09:13→21:27)
--- NOTE | 2021-06-27 09:35 | PM.PNGS ---
Progress Note: A&P Assessment and Plan (1) Abdominal pain: Qualifiers: Abdominal location: right lower quadrant Qualified Code(s): R10.31 - Right lower quadrant pain Code(s): R10.9 - Unspecified abdominal pain Status: Acute Assessment and Plan: Pain resolving. Continue IV Levaquin and Flagyl. Advance diet to low fiber as tolerated. Stop IV fluids. OK to discharge from surgical standpoint. Recommend antibiotics for 10 more days, low fiber diet for 2 weeks. (2) Abnormal CT scan: Code(s): R93.89 - Abnormal findings on diagnostic imaging of other specified body structures Status: Acute Subjective Subjective Date/Time Seen: 06/27/21 09:35 Interval history: Bowels moving. Pain nearly resolved. Tolerating clears. Exam GI: Inspection: non-distended GI Palp: Yes Tenderness to palpation present (GI) (RLQ), No Guarding due to palpation present (GI) and No Rebound tenderness present Auscultation: normal bowel sounds Objective Data Vital Signs Vital Signs: Vital Signs - 24 hr 06/26/21 14:17 06/26/21 14:19 06/26/21 14:25 Temperature Pulse Rate 89 87 Respiratory Rate 20 20 Blood Pressure Pulse Oximetry 93 06/26/21 15:15 06/26/21 20:00 06/26/21 20:29 Temperature 36.4 C Pulse Rate 78 77 76 Respiratory Rate 14 16 16 Blood Pressure 117/38 L Pulse Oximetry 95 92 06/26/21 20:30 06/26/21 20:39 06/26/21 22:00 Temperature 36.8 C Pulse Rate 77 64 Respiratory Rate 16 18 Blood Pressure 118/58 L Pulse Oximetry 92 98 06/27/21 03:05 06/27/21 03:12 06/27/21 06:00 Temperature 36.8 C Pulse Rate 74 75 74 Respiratory Rate 16 16 18 Blood Pressure 115/48 L Pulse Oximetry 95 06/27/21 08:13 06/27/21 09:14 06/27/21 09:21 Temperature Pulse Rate 82 73 68 Respiratory Rate 16 16 Blood Pressure Pulse Oximetry 92 Intake/Output Intake/Output: Intake & Output 06/24/21 06/25/21 06/26/21 06/27/21 23:59 23:59 23:59 23:59 Intake Total 1000 2950 1715 Output Total 900 850 Balance 1000 2050 865 Meds/Results Medications: Active Medications Generic Name Dose Route Start Last Admin Trade Name Freq PRN Reason Stop Dose Admin Albuterol 1 puff 06/26/21 07:32 Albuterol Sulfate (*Sp) Aerosol 1 Puff INHALATION Q2H PRN Shortness Of Breath Or Wheezing Albuterol 2.5 mg 06/26/21 14:00 06/27/21 09:13 Albuterol Sulfate Neb 2.5 Mg/0.5 Ml Inh INHALATION 2.5 mg Q6HRT CHIKI Administration Atenolol 50 mg 06/26/21 09:00 06/27/21 08:13 Atenolol 50 Mg Tablet PO 50 mg DAILY CHIKI Administration Dextrose 12.5 gm 06/26/21 09:21 Dextrose 50% 25 Gm/50 Ml Syringe IV PUSH PRN PRN Hypoglycemia Protocol Fluticasone Propionate 2 puff 06/26/21 20:00 06/27/21 09:13 Fluticasone Prop 44 Mcg (*Sp) 10.6 Gm INHALATION 2 puff Q12HRT CHIKI Administration Glucagon 1 mg 06/26/21 09:21 Glucagon For Inj 1 Mg Vial IM PRN PRN Hypoglycemia Protocol Glucose 15 gm 06/26/21 09:21 Glucose Oral Gel 15 Gm Of Glucse In 37.5 Gm Tube PO PRN PRN Hypoglycemia Protocol Levofloxacin/Dextrose 750 mg in 150 mls @ 100 mls/hr 06/27/21 21:00 Levaquin 750 Mg/D5w 150 Ml IVPB Q48H CHIKI Metronidazole 500 mg in 100 mls @ 100 mls/hr 06/26/21 06:00 06/27/21 05:17 Flagyl 500 Mg/Iso Soln 100 Ml IVPB 100 mls/hr Q6H CHIKI Administration Dextrose 1,000 mls @ 100 mls/hr 06/26/21 09:21 Dextrose 5% 1,000 Ml IVPB PRN PRN Hypoglycemia Protocol Insulin Aspart 2 - 5 units 06/26/21 12:00 06/27/21 08:07 Insulin Aspart (*Bkc) 100 Units/Ml SUB-Q Not Given TIDWM CHIKI Protocol Ipratropium [place] 0.5 mg 06/26/21 14:00 06/27/21 09:13 Ipratropium Br 0.02% Inh Soln 0.5 Mg/2.5 Ml Vial INHALATION 0.5 mg Q6HRT CHIKI Administration Levothyroxine Sodium 75 mcg 06/26/21 06:30 06/26/21 08:20 Levothyroxine Sodium 75 Mcg Tablet PO 75 mcg
--- NOTE | 2021-06-27 11:59 | PM.IMPN ---
Progress Note: A&P Assessment and Plan (1) Acute generalized abdominal pain: Code(s): R10.84 - Generalized abdominal pain Status: Deleted Assessment and Plan: Patient presented with abdominal pain ongoing for 1 day with associated nausea, vomiting -CT abd pelv w/ diverticulosis of the ilium, left and right colon, cholelithiasis, large hiatal hernia, and nonspecific mild free fluid accumulation in the mid and right lower abdomen and pelvis -she had mild leukocytosis on presentation which has resolved. She has been afebrile. -she has been seen in consultation by General surgery due to findings of free fluid in the abdomen -per surgery, there was evidence of fat stranding around a large diverticulum which could suggest small-bowel diverticulitis without perforation -continue IV Levaquin and Flagyl -she is tolerating full liquids. Will discontinue IV fluids at this time as she has been adequately rehydrated and tolerating p.o. intake -advance to low-fiber diet -hopeful discharge tomorrow if continued improvement (2) Abnormal CT scan: Code(s): R93.89 - Abnormal findings on diagnostic imaging of other specified body structures Status: Acute Assessment and Plan: -as above (3) COPD (chronic obstructive pulmonary disease): Code(s): J44.9 - Chronic obstructive pulmonary disease, unspecified Status: Acute Assessment and Plan: Not in acute exacerbation but has recently had some increased wheezing with her seasonal allergies -continue flovent (pt states she is supposed to use but not listed on her med list) -albuterol Atrovent nebs q6h p.r.n. -maintaining adequate O2 sats on room air -CXR in ED showed no active pulmonary disease (4) Hypertension: Qualifiers: Hypertension type: unspecified Qualified Code(s): I10 - Essential (primary) hypertension Code(s): I10 - Essential (primary) hypertension Status: Chronic Assessment and Plan: Blood pressure reviewed and has been reasonably controlled. Last BP 158/48 -continue home lisinopril and atenolol -monitor BP trends (5) Pre-diabetes: Code(s): R73.03 - Prediabetes Status: Acute Assessment and Plan: A1c is 6.4 -metformin on hold during hospitalization -continue Accu-Cheks, sliding scale insulin, and hypoglycemic protocol -monitor blood sugars (6) Hypothyroid: Qualifiers: Hypothyroidism type: unspecified Qualified Code(s): E03.9 - Hypothyroidism, unspecified Code(s): E03.9 - Hypothyroidism, unspecified Status: Chronic Assessment and Plan: TSH is normal -continue levothyroxine (7) Palpitation: Code(s): R00.2 - Palpitations Status: Acute Assessment and Plan: No acute issues -has been controlled with Atenolol many years (8) Hypokalemia: Code(s): E87.6 - Hypokalemia Status: Acute Assessment and Plan: Potassium is 3.3 -administer 40 mEq p.o. KCl -monitor BMP (9) Cholelithiasis: Code(s): K80.20 - Calculus of gallbladder without cholecystitis without obstruction Status: Acute Assessment and Plan: CT of the abdomen/pelvis showed cholelithiasis -patient's symptoms not felt to be related to gallbladder -should continue on a low-fat diet on discharge to prevent any future issues Subjective Date/time seen: 06/27/21 11:59 Interval history: Date of service: 06/27/2021 Dalila Rowe is an 80 year old female with a history of asthma, COPD, hypertension, hyperlipidemia, hypothyroidism, and prediabetes who is seen in follow-up for abdominal pain. She is feeling better today. At this time she has no abdominal pain she denies nausea or vomiting. She tolerated some clear liquids this morning for breakfast. She said she had a couple bites of Jell-O and had all her broth. This morning she had a formed bowel movement. No diarrhea. Denies urinary symptoms. She states that
[2021-06-27 12:12] LABS: Glucose Point of Care 131 mg/dl (65-105)
[2021-06-27] MEDS: polyethylene glycoL 3350 17 GM POWD.PACK PO (12:23)
[2021-06-27] MEDS: POTASSIUM CHLORIDE 20 MEQ TABLET 40 MEQ PO (12:24)
[2021-06-27 16:44] LABS: Glucose Point of Care 106 mg/dl (65-105)
[2021-06-27] MEDS: lisinopriL 20 MG TABLET PO (17:44)
[2021-06-27 20:34] LABS: Glucose Point of Care 127 mg/dl (65-105)
[2021-06-27] MEDS: SERTRALINE HCL 50 MG TABLET PO (20:40)
[2021-06-28 05:25] LABS: Hematocrit 35.9 % (37.0-47.0); Hemoglobin 11.3 g/dL (12.0-15.0); Mean Corpuscular HGB Conc 31.5 g/dl (32-36); Mean Corpuscular Hemoglobin 29.4 pg (26-34); Mean Corpuscular Volume 93.5 fl (80-100); Mean Platelet Volume 11.1 fl (7.4-10.4); Platelet Count Result 163 k/mm3 (150-375); Red Blood Count 3.84 M/mm3 (4.2-5.4); Red Cell Distribution Width 15.7 % (11.5-14.5); White Blood Count 6.8 K/mm3 (4.5-10.0)
[2021-06-28] MEDS: metroNIDAZOLE 500 MG/ISO 100ML 500 MG/100 ML BAG 100 MG IVPB ×2 (05:40→12:53)
[2021-06-28 05:45] LABS: Anion Gap 5 mmol/L (8-16); Blood Urea Nitrogen 10 mg/dL (7-17); Calcium 8.5 mg/dL (8.4-10.2); Carbon Dioxide 23 mmol/L (22-30); Chloride 111 mmol/L (98-107); Estimated CRCL calculation 31 ml/min; Estimated Glomerular Filt Rate 48; Glucose 115 mg/dL (65-110); Sodium 139 mmol/L (137-145)
[2021-06-28 05:46] VITALS: BP 111/62; PULSE 81; RESP 18; TEMP 36.8; O2SAT 93
[2021-06-28] MEDS: LEVOTHYROXINE SODIUM 75 MCG TABLET PO (06:21)
[2021-06-28 07:51] LABS: Glucose Point of Care 120 mg/dl (65-105)
[2021-06-28 08:21] VITALS: O2SAT 93
[2021-06-28] MEDS: FLUTICASONE PROP 44 MCG (*SP) 10.6 GM 2 PUFF INHALATION (08:22)
[2021-06-28 08:52] VITALS: PULSE 84
[2021-06-28] MEDS: atenoloL 50 MG TABLET PO (08:52)
[2021-06-28] MEDS: PANTOPRAZOLE SODIUM IV 40 MG VIAL IV PUSH (08:52)
--- NOTE | 2021-06-28 10:27 | PM.DS ---
DS: Admitting Diagnosis Discharge Date 06/28/2021 Admitting Diagnosis Abdominal pain DS: Discharge Diagnosis Discharge Diagnosis (1) Acute generalized abdominal pain: Code(s): R10.84 - Generalized abdominal pain Status: Deleted Assessment and Plan: Patient presented with abdominal pain ongoing for 1 day with associated nausea, vomiting -CT abd pelvis showed diverticulosis of the ilium, left and right colon, cholelithiasis, large hiatal hernia, and nonspecific mild free fluid accumulation in the mid and right lower abdomen and pelvis -she had mild leukocytosis on presentation which resolved, she remained afebrile. -she was seen in consultation by General surgery due to findings of free fluid in the abdomen -per surgery, there was evidence of fat stranding around a large diverticulum which could suggest small-bowel diverticulitis without perforation -she was started on IV Levaquin and Flagyl for coverage of diverticulitis and had symptomatic improvement -she was able to tolerate a low-fiber diet which she will continue for 2 weeks -continue p.o. Levaquin and Flagyl as an outpatient for 10 days (2) Abnormal CT scan: Code(s): R93.89 - Abnormal findings on diagnostic imaging of other specified body structures Status: Acute Assessment and Plan: -findings and plan as above (3) COPD (chronic obstructive pulmonary disease): Code(s): J44.9 - Chronic obstructive pulmonary disease, unspecified Status: Acute Assessment and Plan: Not in acute exacerbation but recently had some increased wheezing with her seasonal allergies -her symptoms improved with nebs. No wheezing appreciated on my encounter -continue flovent and rescue albuterol inhaler p.r.n. -CXR in ED showed no active pulmonary disease (4) Hypertension: Qualifiers: Hypertension type: unspecified Qualified Code(s): I10 - Essential (primary) hypertension Code(s): I10 - Essential (primary) hypertension Status: Chronic Assessment and Plan: Blood pressure reviewed and was controlled -continue home lisinopril and atenolol (5) Pre-diabetes: Code(s): R73.03 - Prediabetes Status: Acute Assessment and Plan: A1c is 6.4 -metformin held during hospitalization, resumed on discharge (6) Hypothyroid: Qualifiers: Hypothyroidism type: unspecified Qualified Code(s): E03.9 - Hypothyroidism, unspecified Code(s): E03.9 - Hypothyroidism, unspecified Status: Chronic Assessment and Plan: TSH is normal -continue levothyroxine (7) Palpitation: Code(s): R00.2 - Palpitations Status: Acute Assessment and Plan: No acute issues -has been controlled with Atenolol many years (8) Hypokalemia: Code(s): E87.6 - Hypokalemia Status: Acute Assessment and Plan: Resolved with supplementation -potassium 4.0 at time of discharge (9) Cholelithiasis: Code(s): K80.20 - Calculus of gallbladder without cholecystitis without obstruction Status: Acute Assessment and Plan: CT of the abdomen/pelvis showed cholelithiasis -patient's symptoms not felt to be related to gallbladder -she should continue on a low-fat diet on discharge to prevent any future issues DS: Summary Hospital Course Hospital Course: Date of admission: 06/25/2021 Date of discharge: 06/28/2021 Dalila Rowe is an 80-year-old female with a history of asthma, COPD, hypertension, hyperlipidemia, hypothyroidism, and prediabetes who presented to the emergency department on 06/25/2021 with complaints of sudden-onset abdominal pain with associated nausea and 1 episode of vomiting. On presentation to the ED, she was afebrile with mild leukocytosis and CT abdomen/pelvis demonstrated free fluid accumulation in the lower abdomen. She was admitted to the hospitalist service for further evaluation management was seen in consultation by
[2021-06-28 11:28] LABS: Glucose Point of Care 136 mg/dl (65-105)
== END 2021-06-28 14:15 | disposition home or self-care (01) ==
LOC: ANHED 21:40 → ANH3MED 06-26 01:28
PROVIDERS: Physician Assistant; Admitting Provider Internal Medicine; Emergency Provider Emergency Medicine; PCP Student in an Organized Health Care Education/Training Program; Visit Provider Family Medicine
DX: R10.31 Right lower quadrant pain (principal); K57.90 Diverticulosis of intestine, part unspecified, without perforation or abscess without bleeding; E87.6 Hypokalemia; R93.89 Abnormal findings on diagnostic imaging of other specified body structures; R11.2 Nausea with vomiting, unspecified; K80.20 Calculus of gallbladder without cholecystitis without obstruction; D72.829 Elevated white blood cell count, unspecified; R06.02 Shortness of breath; E03.9 Hypothyroidism, unspecified; E78.5 Hyperlipidemia, unspecified; I10 Essential (primary) hypertension; J44.9 Chronic obstructive pulmonary disease, unspecified; K44.9 Diaphragmatic hernia without obstruction or gangrene; R73.03 Prediabetes; R00.2 Palpitations; Z87.891 Personal history of nicotine dependence
CPT/HCPCS: 36415; 71045; 74177; 80048; 80053; 81001; 82948; 83036; 83605; 83690; 84484; 85025; 85027; 87086; 87088; 94640; 96361; 96365; 96366; 96367; 96374; 96375; 96376; 97161; 97165; 99285; A9270; C9113; G0378; J0131; J1170; J1956; J2405; J7030; Q9967

== ENCOUNTER 2021-11-21 17:26 | Emergency (ER) | payer OTHER, SELFPAY ==
--- NOTE | ~2021-11-21 | CT_ITS ---
EXAMINATION: CT brain wo con DATE: 11/21/2021 18:54 INDICATION: fall/struck head . TECHNIQUE: Computed tomography (CT) of the head was performed without intravenous contrast. The mA wa s adjusted according to patient size. Iterative reconstruction technique was employed. The dose-lengt h product was 605.33 mGy-cm. COMPARISON: 01/28/2015 FINDINGS: No acute intracranial hemorrhage or extra-axial fluid collection. No hydrocephalus, mass, or herniation. No acute ischemic infarct. Unremarkable dural venous sinus attenuation. No acute osseous abnormality. Small bilateral mastoid effusions, mild bilateral maxillary sinus mucosal thickening/fluid, otherwise the aerated spaces are clear. Mild atrophy and chronic white matter change. Atherosclerotic intracranial calcification. Bilateral l ens replacements. IMPRESSION: No acute intracranial process. Maxillary sinus findings may reflect acute sinusitis, or minimal mucos al hemorrhage in the appropriate clinical context. Reviewed, dictated and finalized at location K. IMPRESSION: No acute intracranial process. Maxillary sinus findings may reflect acute sinus itis, or minimal mucosal hemorrhage in the appropriate clinical context.
--- NOTE | ~2021-11-21 | CT_ITS ---
EXAMINATION: CT cervical spine wo con DATE: 11/21/2021 18:54 INDICATION: fall/struck head TECHNIQUE: Computed tomography (CT) of the cervical spine was performed without intravenous contrast. Automated exposure control and iterative reconstruction technique were employed. The dose-length pro duct was 254.46 mGy-cm. COMPARISON: 01/28/2015 FINDINGS: Vertebral Body Alignment: Intact. Craniocervical and atlantoaxial alignment: Moderate degenerative change. Alignment intact. Osseous structures/fracture: No evidence of a lytic or blastic process in the visualized spine. No e vidence of acute fracture. Cervical soft tissues: The paraspinal soft tissues planes are maintained. Biapical pleural scarring. Degenerative changes: Degenerative changes, without severe neural foraminal or central canal narrowin g. IMPRESSION: No acute fracture or traumatic malalignment in the cervical spine. Reviewed, dictated and finalized at location K.
[2021-11-21 17:31] VITALS: BP 141/58; PULSE 77; RESP 16; TEMP 36.3; O2SAT 97
--- NOTE | 2021-11-21 19:31 | ED.FALL ---
HPI - Fall General Chief Complaint: Fall Stated Complaint: fall/struck head Time Seen by Provider: 11/21/21 19:22 Source: patient, family and RN notes reviewed Limitations: no limitations History of Present Illness HPI Narrative: 81 years old white female fell backward while going down in her driveway while carrying stuff by both hands. No loss of consciousness, complaining of occipital pain, she denies any neck pain, back pain, chest pain, nausea, vomiting, chest pain or abdominal pain or extremity pain. Patient is not on blood thinners. Related Data Home Medications Medication Instructions Recorded Confirmed atenolol 50 mg tablet 50 mg PO DAILY 11/29/19 06/26/21 levothyroxine 50 mcg tablet 50 mcg PO EVERY OTHER DAY 11/29/19 06/26/21 levothyroxine 75 mcg tablet 75 mcg PO EVERY OTHER DAY 11/29/19 06/26/21 lisinopril 20 mg tablet 20 mg PO DAILY 11/29/19 06/26/21 omeprazole 40 mg capsule,delayed 40 mg PO PRN PRN Acid Reflux 11/29/19 06/26/21 release sertraline 100 mg tablet 50 mg PO HS 11/29/19 06/26/21 simvastatin 20 mg tablet 20 mg PO DAILY 11/29/19 06/26/21 albuterol 90 mcg/actuation aerosol 1 mcg inhalation Q2-6H PRN 06/26/21 06/26/21 inhaler Shortness Of Breath Or Wheezing metformin 500 mg tablet 500 mg PO DAILY 06/26/21 06/26/21 trazodone 50 mg tablet 50 mg PO HS 06/26/21 06/26/21 Allergies Allergy/AdvReac Type Severity Reaction Status Date / Time cefadroxil Allergy Severe ITCHING/HIV Verified 11/21/21 19:23 ES Penicillins Allergy Unknown Hives Verified 11/21/21 19:23 Review of Systems Review of Systems: All systems reviewed & are unremarkable except as noted in HPI and below PMFSH Past Medical History Medical History Asthma COPD (chronic obstructive pulmonary disease) History of diverticulitis 2013 - Hospitalized and treated for acute diverticulitis suspected to be small bowel diverticulitis with microperforation. Treated with antibiotics. History of kidney stones 2008 Hyperlipidemia Hypertension Hypothyroid Palpitation Pre-diabetes Surgical History Surgical History H/O: section History of cystoscopy 2008 for ureteral stone that was extracted Status post left breast lumpectomy Family History Family History Mother Cerebrovascular accident Diabetes mellitus Father Lung cancer Social History Social History Social History: Lives alone, of 62 years in 2019, has 2 children and 2 grandchildren that live nearby. She wishes that her code status be DNR. Smoking packs per day: 1 Smoking cigarettes per day: 20.0 Years smoked: 13 Smoking pack-years: 13.00 Smoking status: Former smoker Tobacco type: cigarettes Alcohol intake: never Substance use: never Gender identity (if verbalized by the patient): Female Spiritual care concerns: No Exam Narrative: General appearance: Well-developed, well-nourished Skin: Normal color, abrasion right elbow laterally Head: Normocephalic, mild occipital tenderness Eyes: Clear conjunctiva ENT: Oropharynx normal, ears normal, nose normal Neck: Supple, nontender Chest and respiratory: Airway patent, no respiratory distress, no accessory muscle use Heart: Regular rate/rhythm Abdomen: Soft, nontender, no organomegaly, quiet bowel sounds Vascular: Normal peripheral pulses, normal capillary refill. Musculoskeletal: Normal range of motion, nontender back Neurologic: Alert and oriented ?3, PEST CONTROL PILOT is normal as tested, no gross motor deficit
[2021-11-21 19:38] VITALS: BP 116/83; RESP 16; O2SAT 98
== END 2021-11-21 20:10 | disposition home or self-care (01) ==
LOC: ANHED 19:38
PROVIDERS: Emergency Provider Emergency Medicine; PCP Student in an Organized Health Care Education/Training Program
DX: S09.90XA Unspecified injury of head, initial encounter (principal); J44.9 Chronic obstructive pulmonary disease, unspecified; E78.5 Hyperlipidemia, unspecified; I10 Essential (primary) hypertension; E03.9 Hypothyroidism, unspecified; R73.03 Prediabetes; Z87.442 Personal history of urinary calculi; Z79.84 Long term (current) use of oral hypoglycemic drugs; Z87.891 Personal history of nicotine dependence; W18.39XA Other fall on same level, initial encounter
CPT/HCPCS: 70450; 72125; 99284

== ENCOUNTER 2022-03-08 12:42 | Observation (INO) | payer OTHER, SELFPAY ==
[2022-03-08] VITALS (17 sets, daily range): BP systolic 118–163; BP diastolic 49–87; PULSE 70–87; RESP 13–22; O2SAT 99–100
--- NOTE | ~2022-03-08 | CT_ITS ---
EXAMINATION: CT brain wo con DATE: 03/08/2022 15:27 INDICATION: Slurred speech and altered mental status TECHNIQUE: Computed tomography (CT) of the head was performed without intravenous contrast. Sagittal and coronal reconstructions were performed. The mA was adjusted according to patient size. Iterative reconstruction technique was employed. The dose-length product was 908.00 mGy-cm. COMPARISON: head CT dated 11/21/2021 FINDINGS: No acute intracranial hemorrhage, acute infarction or abnormal extra axial fluid collection. There is moderate scattered white matter hypoattenuation consistent with chronic small vessel ischemic diseas e. Symmetric prominence of the sulci and ventricles consistent with mild to moderate age-appropriate diffuse cerebral volume loss. No mass/mass effect. Changes of bilateral intraocular lens replacement. Chronic small bilateral mastoid effusions. Intracranial calcified cerebral atherosclerosis is noted. Mucosal thickening, bubbly mucus and dependently layering fluid in the paranasal sinuses. IMPRESSION: 1. No acute intracranial process. 2. Age-related changes including mild to moderate diffuse volume loss and moderate scattered white ma tter hypoattenuation consistent with chronic small vessel ischemic disease. 3. Mucosal thickening, and likely mucous and fluid in the paranasal sinuses suggestive of acute sinus itis. Reviewed, dictated and finalized at location A. O PLAYER MECHANIC IMPRESSION: 1. No acute intracranial process. 2. Age-related changes including mild to moderate diffuse volume loss and moder ate scattered white matter hypoattenuation consistent with chronic small vessel ischemic disease. 3. Mucosal thickening, and likely mucous and fluid in the paranasal sinuses sug gestive of acute sinusitis.
--- NOTE | ~2022-03-08 | CT_ITS ---
EXAMINATION: CTA brain carotid DATE: 03/08/2022 17:19 BIOLOGY TUTOR INDICATION: Slurred speech TECHNIQUE: Computed tomographic angiography (CTA) of the head was performed without and with 100 mL O mnipaque-350 intravenous contrast. CTA of the neck was performed with intravenous contrast. The dose- length product was 938.13 mGy-cm. Maximum intensity projection and volume rendered 3D-reconstructions were created by the technologist on a separate workstation. COMPARISON: CT dated 03/08/2022. FINDINGS: HEAD CTA: The anterior, middle and posterior cerebral artery are symmetric without significant stenos is, occlusion or aneurysm. The anterior communicating artery is present. NECK CTA: The study is nondiagnostic for evaluation of carotid artery stenosis due to motion artifact in the area of the carotid bulb/proximal internal carotid artery. There is atherosclerosis of the ao rta and carotid bulbs. The vertebral arteries are symmetric. There is chronic interstitial lung disea se of the periphery in the upper lobes. There is extensive mucosal thickening of the paranasal sinuse s with air-fluid levels, compatible with acute sinusitis. No definite carotid occlusion or dissection . IMPRESSION: 1. Unremarkable CT angiography of the head. 2: Nondiagnostic CTA carotid due to motion artifact which limits evaluation for stenosis. No definit e occlusion or dissection. 3: Moderate acute sinusitis. Reviewed, dictated and finalized at location A. OGY TUTOR IMPRESSION: 1. Unremarkable CT angiography of the head. 2: Nondiagnostic CTA carotid due to motion artifact which limits evaluation fo r stenosis. No definite occlusion or dissection. 3: Moderate acute sinusitis.
--- NOTE | ~2022-03-08 | XR_ITS ---
XR chest 1V portable DATE: 03/08/2022 16:12 INDICATION: Slurred speech TECHNIQUE: Portable AP chest on 03/18/2022 at 1609 hours COMPARISON: 06/25/2021 portable AP chest at 2159 hours FINDINGS: Normal heart size. Moderately large hiatal hernia. Aortic arch calcification. No hilar or m ediastinal enlargement. No pulmonary infiltrate or consolidation, pleural effusion or pulmonary vascular congestion or pneumo thorax is detected. Osteopenia. IMPRESSION: No active cardiopulmonary disease Moderately large hiatal hernia Aortic atherosclerosis Osteopenia Reviewed, dictated and finalized at location B. UREMENT ANALYST
--- NOTE | ~2022-03-08 | MR_ITS ---
EXAMINATION: MR brain/brain stem wo/w con DATE: 03/09/2022 09:40 INDICATION: Confusion and slurred speech. TECHNIQUE: Magnetic resonance imaging (MRI) of the brain and brainstem was performed without and with 10 mL Multihance intravenous contrast. Sequences included sagittal and axial T1-weighted SE, axial d iffusion-weighted FS SE, axial T2*-weighted GRE, axial 3D SWAN, axial T2-weighted FLAIR, and axial T2 -weighted FSE. Postcontrast axial and coronal T1-weighted SE was obtained. Apparent diffusion coeffic ient (ADC) maps were created. COMPARISON: Head CT and CT angiogram dated 03/18/2022 FINDINGS: There are no areas of restricted diffusion to suggest acute infarction. No intracranial hemorrhage or abnormal intracranial mass lesion. There are scattered areas of nonspecific increased T2-weighted si gnal intensity in the cerebral white matter, predominantly involving the deep and periventricular whi te matter. This is within normal limits for age and likely sequela of chronic small vessel ischemic d isease. There are no intraparenchymal signal abnormalities seen on the other pulse sequences. Symmetr ic prominence of the sulci consistent with mild to moderate age-appropriate diffuse cerebral volume l oss. The ventricles are symmetric and normal in size. There are no abnormal extra-axial fluid collec tions. Flow voids are seen in the cerebral arteries on the T2-weighted sequences consistent with thei r expected patency. Moderate mucosal thickening throughout the paranasal sinuses with small amount of dependently layering fluid in the bilateral maxillary sinuses consistent with acute sinusitis. Hsu es of bilateral intraocular lens replacement. Bilateral mastoid effusions. There are no areas of abn ormal enhancement on the post contrast images. IMPRESSION: 1. No acute intracranial process or abnormally enhancing brain lesions. 2. Age-related changes including mild to moderate diffuse volume loss and moderate scattered perivent ricular predominant nonspecific white matter T2 hyperintensity consistent with chronic small vessel i schemic disease. 3. Likely acute sinusitis. Reviewed, dictated and finalized at location A. ES NAVAL IMPRESSION: 1. No acute intracranial process or abnormally enhancing brain lesions. 2. Age-related changes including mild to moderate diffuse volume loss and moder ate scattered periventricular predominant nonspecific white matter T2 hyperinte nsity consistent with chronic small vessel ischemic disease. 3. Likely acute sinusitis.
--- NOTE | ~2022-03-08 | US_ITS ---
EXAMINATION: US carotid duplex BI DATE: 03/09/2022 10:13 INDICATION: Speech-language deficit. Carotid artery atherosclerosis and stenosis. TECHNIQUE: Grayscale, color Doppler, and pulsed Doppler images of the cervical carotid arteries were obtained. The degree of vessel stenosis is placed in one of the following categories: normal, <50%, 5 0-69%, >=70% but less than near-occlusion, near-occlusion, or total occlusion. Note that percent sten osis relative to normal distal artery lumen diameter is indirectly measured from velocity measurement s as described by Garrison, et al. Radiology 2003; [id number]. COMPARISON: None. FINDINGS: RIGHT: The right common carotid artery (CCA) peak systolic velocity (PSV) is 56 cm/s. The right internal car otid artery (ICA) PSV is 78 cm/s. The right ICA end-diastolic velocity (EDV) is 16 cm/s. The right IC A/CCA PSV ratio is 1.4. Grayscale and color Doppler images yield an estimate of <50% diameter reducti on from plaque in the ICA. The external carotid artery (ECA) PSV is 65 cm/s. There is antegrade flow in the right vertebral artery. LEFT: The left CCA PSV is 75 cm/s. The left ICA PSV is 64 cm/s. The left ICA EDV is 14 cm/s. The left ICA/C CA PSV ratio is 0.9. Grayscale and color Doppler images yield an estimate of <50% diameter reduction from plaque in the ICA. The ECA PSV is 70 cm/s. There is antegrade flow in the left vertebral artery. IMPRESSION: 1. <50% stenosis in the right internal carotid artery. 2. <50% stenosis in the left internal carotid artery. Reviewed, dictated and finalized at location A. UCTION SORTER
--- NOTE | ~2022-03-08 | CT_ITS ---
EXAMINATION: CT abdomen pelvis wo con DATE: 03/08/2022 16:06 INDICATION: Diffuse abdominal pain TECHNIQUE: Computed tomography (CT) of the abdomen and pelvis was performed without intravenous contr ast. Automated exposure control and iterative reconstruction technique were employed. Exam dose: 353 .63 mGy-cm total exam DLP. COMPARISON: 06/25/2021 CT abdomen pelvis FINDINGS: Bilateral lower lung peripheral septal soft tissue thickening and/atelectasis. Moderately l arge sliding hiatal hernia. Normal heart size. No pericardial or pleural effusion. There are multiple stones in the dependent aspect of the gallbladder. There is borderline thickening of the gallbladder wall. No pericholecystic fluid or fat stranding. No bile duct or pancreatic duct d ilatation. The liver, spleen, pancreas, and adrenal glands and kidneys are unremarkable on this limited noncontr ast examination. No urinary tract calculus or hydroureteronephrosis. The urinary bladder, uterus and adnexal areas are unremarkable. There is normal caliber but extensive calcification of the abdominal aorta and branches. No intraperi toneal or retroperitoneal or pelvic mass lesion or adenopathy or ascites. Multiple diverticula of the small bowel are again noted. There are numerous diverticula of the sigmoid colon in particular with mild involvement of the spleni c flexure minimal involvement of the transverse colon. No CT evidence of diverticulitis. The appendix is not identified. There is no evidence of appendicitis. No bowel obstruction, bowel wall thickening , pneumatosis or intraperitoneal free air is detected. There is a new mild to moderate anterior wedge compression fracture deformity of L1 since 06/25/2021. Bilateral hip osteoarthritis. IMPRESSION: New mild to moderate anterior wedge compression fracture of L1 since 06/25/2021 Diverticulosis of small bowel Diverticulosis of the colon; no CT evidence of diverticulitis Moderately large sliding hiatal hernia Cholelithiasis Reviewed, dictated and finalized at [facility]. Reviewed, dictated and finalized at location [facility]. OUT DRAFTER IMPRESSION: New mild to moderate anterior wedge compression fracture of L1 sin ce 06/25/2021 Diverticulosis of small bowel Diverticulosis of the colon; no CT evidence of diverticulitis Moderately large sliding hiatal hernia Cholelithiasis
--- NOTE | 2022-03-08 15:22 | ECG_ITS ---
Measurements Intervals [place] Rate: 71 P: 23 NC: 183 QRS: -15 QRSD: 80 T: 49 QT: 383 QTc: 419 Interpretive Statements SINUS RHYTHM VOLTAGE CRITERIA FOR LVH [MEETS CRITERIA IN ONE OF: R(aVL), S(V1), R(V5), R(V5/V6)+S(V1)] POOR R-WAVE PROGRESSION COMPARED TO ECG 11/29/2019 01:10:43 LEFT VENTRICULAR HYPERTROPHY NOW PRESENT Electronically Signed On 03-08-2022 17:26:57 OIL SPOT WASHER by Giuliano Ibrahim M.D.
[2022-03-08 15:23] LABS: Glucose Point of Care 157 mg/dl (65-105)
[2022-03-08 15:46] LABS: Basophils Percent Auto 0.4 % (0.2-1.2); Eosinophils Absolute Auto 0.6 K/mm3 (0-0.3); Eosinophils Percent Auto 8.1 % (0-4.4); Hematocrit 39.7 % (37.0-47.0); Hemoglobin 12.4 g/dL (12.0-15.0); Immature Granulocyte Absolute 0.02 K/mm3 (0.00-0.031); Immature Granulocyte Percent A 0.3 % (0-0.5); Immature Platelet Fraction Pct 7.6 % (0.9-11.2); Lymphocytes Absolute Auto 2.11 K/mm3 (0.9-3.2); Lymphocytes Percent Auto 27.2 % (18.3-44.2); Mean Corpuscular HGB Conc 31.2 g/dl (32-36); Mean Corpuscular Hemoglobin 28.8 pg (26-34); Mean Corpuscular Volume 92.1 fl (80-100); Mean Platelet Volume 11.8 fl (7.4-10.4); Monocytes Absolute Auto 0.5 K/mm3 (0.1-0.6); Monocytes Percent Auto 6.8 % (2.6-8.5); Neutrophils Absolute Auto 4.4 K/mm3 (1.3-6.7); Neutrophils Percent Auto 57.2 % (45.5-73.1); Platelet Count Result 271 k/mm3 (150-375); Red Blood Count 4.31 M/mm3 (4.2-5.4); Red Cell Distribution Width 14.2 % (11.5-14.5); White Blood Count 7.8 K/mm3 (4.5-10.0)
--- NOTE | 2022-03-08 15:53 | ED.NEUROSD ---
HPI - Neuro Symptoms/Deficit General Chief Complaint: Suspected CVA Stated Complaint: abd pain, lethargic at first now A&Ox4. Time Seen by Provider: 03/08/22 15:25 Source: patient, family, EMS and RN notes reviewed Mode of arrival: EMS Limitations: clinical condition History of Present Illness HPI Narrative: This is a 81 year old female with history of hypertension, hypothyroidism, and DM who presents from [facility] for evaluation of abdominal pain, syncope and possible CVA. EMS reports patient was brought in for syncope. Family reports patient was having a good day and around 2 pm she went to take a shower. She was able to shower on her own and she walked into living room. Her daughter reports patient told them she had low back pain and she was going to pass out. Patient was sitting down and her daughter states she did pass out. EMS was called and brought patient to ER. Triage nurse noticed that patient had garbled speech during triage. Patient is oriented to person but not place or time. She denies headache or fall. She does complain about diffuse abdominal pain. She denies weakness, numbness or tingling. She denies blurred vision. Last Observed Normal: 14:00 Timing confirmed by: family member Location: speech Related Data Home Medications Medication Instructions Recorded Confirmed atenolol 50 mg tablet 50 mg PO DAILY 11/29/19 06/26/21 levothyroxine 50 mcg tablet 50 mcg PO EVERY OTHER DAY 11/29/19 06/26/21 levothyroxine 75 mcg tablet 75 mcg PO EVERY OTHER DAY 11/29/19 06/26/21 lisinopril 20 mg tablet 20 mg PO DAILY 11/29/19 06/26/21 omeprazole 40 mg capsule,delayed 40 mg PO PRN PRN Acid Reflux 11/29/19 06/26/21 release sertraline 100 mg tablet 50 mg PO HS 11/29/19 06/26/21 simvastatin 20 mg tablet 20 mg PO DAILY 11/29/19 06/26/21 albuterol 90 mcg/actuation aerosol 1 mcg inhalation Q2-6H PRN 06/26/21 06/26/21 inhaler Shortness Of Breath Or Wheezing metformin 500 mg tablet 500 mg PO DAILY 06/26/21 06/26/21 trazodone 50 mg tablet 50 mg PO HS 06/26/21 06/26/21 Allergies Allergy/AdvReac Type Severity Reaction Status Date / Time cefadroxil Allergy Severe ITCHING/HIV Verified 03/08/22 15:11 ES Penicillins Allergy Unknown Hives Verified 03/08/22 15:11 Review of Systems Constitutional: Constitutional: Denies weakness Cardiovascular: Cardiovascular: Denies syncope, Denies rapid heart rate, Denies irregular heart rhythm, Denies leg edema and Denies dyspnea Respiratory: Respiratory: Denies chest congestion, Denies hemoptysis, Denies excessive phlegm production and Denies dyspnea Gastrointestinal: Gastrointestinal: Denies abdominal pain, Denies hematochezia, Denies diarrhea and Denies vomiting Genitourinary: Genitourinary: Denies hematuria and Denies dysuria Musculoskeletal: Musculoskeletal: Denies joint swelling, Denies loss of height and Denies muscle weakness Neurologic: Denies syncope, Denies focal weakness and Denies weakness PMFSH Past Medical History Medical History (Updated 03/08/22 @ 18:27 by Rosalva Manriquez MD) Asthma COPD (chronic obstructive pulmonary disease) History of diverticulitis 2013 - Hospitalized and treated for acute diverticulitis suspected to be small bowel diverticulitis with microperforation. Treated with antibiotics. History of kidney stones 2008 Hyperlipidemia Hypertension Hypothyroid Palpitation Pre-diabetes Surgical History Surgical History (Updated 03/08/22 @ 18:33 by Jluy Cortez NP) H/O: section 2 History of cystoscopy 2008 for ureteral stone that was extracted Status post left breast lumpectomy Family History Family History Mother Cerebrovascular accident Diabetes mellitus Father Lung cancer Social History Social History Social History: Lives alone, of 62 years in 2019, has 2 children and 2 grandchildren that live [place]
[2022-03-08 15:54] LABS: Alanine Aminotransferase 20 U/L (6-35); Albumin Level 4.3 g/dL (3.5-5.1); Alkaline Phosphatase 50 U/L (38-126); Anion Gap 6 mmol/L (8-16); Aspartate Amino Transferase 25 U/L (14-36); Bilirubin,Total 0.6 mg/dL (0.2-1.3); Blood Urea Nitrogen 24 mg/dL (7-17); Calcium 9.5 mg/dL (8.4-10.2); Carbon Dioxide 29 mmol/L (22-30); Chloride 108 mmol/L (98-107); Estimated Glomerular Filt Rate 60; Glucose 143 mg/dL (65-110); Lactic Acid Reflex 1.5 mmol/L (0.7-2.0); Lipase 100 U/L (23-300); Sodium 143 mmol/L (137-145)
[2022-03-08 15:57] LABS: Prothrombin Time 13.2 Seconds (11.1-14.7)
[2022-03-08 15:58] LABS: Partial Thromboplastin Time 28.6 SECONDS (22.3-36.8)
[2022-03-08 16:05] LABS: Troponin I < 0.012 ng/mL (0.000-0.034)
[2022-03-08] MEDS: SODIUM CHLORIDE 0.9% IV 1,000 ML 999 ML IV CONT (16:45)
[2022-03-08 16:47] LABS: Influenza A QL RT-PCR Negative (Negative); Influenza B QL RT-PCR Negative (Negative); SARS-CoV-2 RNA PCR Negative
[2022-03-08 17:00] LABS: Appearance Urine Clear (Clear); Bilirubin Urine 1+ (Negative); Blood Urine Trace-intact (Negative); Color Urine Yellow (Yellow); Glucose Urine UA Negative (Negative); Ketones Urine Trace mg/dL (Negative); Leukocyte Esterase Ur Negative LEU/UL (Negative); Nitrate Urine Negative (Negative); Protein Urine Trace mg/dL (Negative); Specific Grav Ur >= 1.030 (1.001-1.035)
[2022-03-08 17:05] LABS: Bacteria Urine Trace /hpf; Mucus Urine Rare /lpf; Squamous Epithelial Cell Urine Occasional /hpf (Few)
[2022-03-08 17:08] LABS: Add Urine Microscopic? YES
--- NOTE | 2022-03-08 18:30 | PM.IMHP ---
H&P: HPI History of Present Illness Date/Time: 03/08/22 18:30 Chief Complaint: Suspected CVA Narrative: This is a 81-year-old female patient who is very hard of hearing. She has a history of hypertension, hypothyroidism and diabetes. The patient came in to be evaluated for abdominal pain, syncope and possible CVA. The patient reportedly had a good day until 2:00 p.m. when she went to take a shower. After her shower the patient went into living room and stated she was going to pass out and then she did pass out. EMS was called and the patient was brought to the emergency room. In triage the patient had a garbled speech and she was only orientated to self. She also complained of diffuse abdominal pain. Her blood sugar was noted to be 157. Urine is clear. She was negative for influenza A/B and COVID. Head and neck CTA was read as unremarkable CT Angiography of the head non diagnostic CTA carotid due to motion artifact which limits evaluation for stenosis. No definite occlusion or dissection. Moderate acute sinusitis. The patient was treated for a sinus infection 1 month ago. Chest x-ray was read as no acute cardiopulmonary disease moderately large hiatal hernia aortic atherosclerosis and osteopenia. Abdominal pelvis CT was read as the following New mild to moderate anterior wedge compression fracture of L1 since 06/25/2021 Diverticulosis of small bowel Diverticulosis of the colon; no CT evidence of diverticulitis Moderately large sliding hiatal hernia Cholelithiasis The patient was given IV fluids an aspirin in the emergency room. Neurology was consulted. The patient is being admitted to observation status on the date of service of 03/08/2022. Review of Systems Review of Systems: See HPI All systems reviewed & are unremarkable except as noted in HPI and below Constitutional: Constitutional: Reports as per HPI and Reports no additional constitutional complaints Eyes: Eyes: Reports as per HPI and Reports no additional eye complaints ENT: Reports system reviewed and no additional complaints, except as documented and Reports Normal hearing present Cardiovascular: Cardiovascular: Reports no additional cardiovascular complaints Respiratory: Respiratory: Reports no additional respiratory complaints and Reports no additional respiratory complaints Gastrointestinal: Gastrointestinal: Reports as per HPI and Reports no additional gastrointestinal complaints Musculoskeletal: Musculoskeletal: Reports no additional musculoskeletal complaints Integumentary/Breasts: Skin/Breast: Reports system reviewed and no additional complaints, except as docu and Reports as per HPI Neurologic: Reports system reviewed and no additional complaints, except as documented, Reports as per HPI and Reports Normal hearing present Psychiatric: Psychiatric: Reports no additional psychiatric complaints and Reports as per HPI Endocrine: Endocrine: Reports no additional endocrine complaints Hematologic/Lymphatic: Hematologic/Lymphatic: Reports no additional hematologic/lymphatic complaints Allergic/Immunologic: Allergic/Immunologic: Reports no additional allergic/immunologic complaints COUNT INCLUDES THE [facility] Past Medical History Medical History Asthma COPD (chronic obstructive pulmonary disease) History of diverticulitis 2013 - Hospitalized and treated for acute diverticulitis suspected to be small bowel diverticulitis with microperforation. Treated with antibiotics. History of kidney stones 2008 Hyperlipidemia Hypertension Hypothyroid Palpitation Pre-diabetes Surgical History Surgical History H/O: section 2 History of cystoscopy 2008 for ureteral stone that was extracted Status post left breast lumpectomy Family History Family History Mother Cerebrovascular accident Diabetes mellitus Father
[2022-03-08] MEDS: ASPIRIN 81 MG CHEWABLE TABLET 324 MG PO (19:29)
[2022-03-08 22:32] LABS: Hemoglobin A1C 6.4 % (<5.7)
--- NOTE | 2022-03-08 23:24 | PC.NURSE ---
attempted to call report room is not clean at this time report given will wait on bed to be clean
[2022-03-09] VITALS (8 sets, daily range): BP systolic 155–171; BP diastolic 52–54; PULSE 67–84; RESP 16; TEMP 35.5–36; O2SAT 97–100; BMI 23.6
--- NOTE | 2022-03-09 00:14 | PC.NURSE ---
called to check on status of room it is not clean yet
--- NOTE | 2022-03-09 00:28 | PC.NURSE ---
FOLLOW UP ON PATIENT ROOM PLACEMENT. ROOM NOT CLEANED AT THIS TIME. HAVE PREVIOUSLY NOTIFIED HOUSEKEEPING. CHARGE NURSE INFORMED OF DELAY.
--- NOTE | 2022-03-09 01:39 | PC.NURSE ---
patients room is still not ready
--- NOTE | 2022-03-09 02:58 | PC.NURSE ---
0220: ED NOTIFIED THAT ROOM WAS CLEAN. AWAITING PATIENT ARRIVAL
--- NOTE | 2022-03-09 03:00 | ADMGEN ---
This patient, Dalila Rowe, was admitted to Medical Room 342-01. Patient/family oriented to hospital policies and general routines including ID bracelet, bed and alarms, visiting hours, pain management, procedures, bathroom and other care routines, personal items, smoking policy, room service/diet, and visiting hours. Information on how to activate the Rapid Response Team has been discussed. Patient/Family are encouraged to report perceived risks to care and to ask questions if they do not understand what they are told or what they should do.
[2022-03-09 03:39] LABS: Glucose Point of Care 106 mg/dl (65-105)
--- NOTE | 2022-03-09 06:00 | ECHO_ITS ---
Patient Info Name: Dalila Rowe Age: 81 years : 1940 Gender: Female Ht: 62 in Wt: 130 lbs BSA: 1.62 m2 BP: 171 / 52 mmHg Heart Rhythm: Sinus Rhythm Technical Quality: Good Exam Date: 03/09/2022 12:52 PM Exam Location: [facility] Patient Status: Outpatient Admit Date: 03/08/2022 Staff Ordering Physician: Rosalva Manriquez MD Medical Billing Clerk: [id number] Attending Provider: Pablo Singh MD Referring Physician: Mitra LOPES; Exam Type: CA echo doppler color flow Study Info Indications Z86.73 - Personal history of transient ischemic attack (TIA), and cerebral infarction without residual deficits Complete two-dimensional, color flow and Doppler transthoracic echocardiogram is performed. Summary 1. Complete two-dimensional, color flow and Doppler transthoracic echocardiogram is performed. 2. Normal left ventricular dimension thickness and contractility with grade 1 diastolic noncompliance. 3. Trivial amounts of aortic and pulmonic valve regurgitation. 4. Mildly enlarged left atrium. 5. Sinus rhythm. Left Ventricle Left ventricular chamber dimension is normal. Left ventricular systolic function is normal, estimated at 60-65%. The left ventricular diastolic function is grade I diastolic dysfunction. Right Ventricle Right ventricular chamber dimension is normal. Left Atria Left atrial chamber dimension is mildly enlarged. Right Atria Right atrial chamber dimension is normal. Aortic Valve The aortic valve is normal. There is trace aortic valve regurgitation. Pulmonic Valve The pulmonic valve is normal. There is trace pulmonic regurgitation. Mitral Valve The mitral valve has normal leaflets. Tricuspid Valve The tricuspid valve leaflets are normal. Pericardium/Pleural The pericardium appears normal. Aorta The aortic root size at the sinus of Valsalva is normal. Left Ventricular Outflow Tract Name Value Normal LVOT 2D LVOT Diameter 1.9 cm LVOT Doppler LVOT Peak Gradient 2 mmHg LVOT Mean Gradient 1 mmHg LVOT VTI 16 cm LVOT VTI/AV VTI Ratio 0.6 LVOT Stroke Volume 44 ml LVOT CO 3.1 l/min LVOT CI 1.9 l/min/m2 Pulmonic Valve Name Value Normal PV Doppler PV Peak Gradient 3 mmHg Mitral Valve Name Value Normal MV Doppler MV Decel [place] 281 cm/s2 MV PHT 61 ms MV Area (PHT)
[2022-03-09 07:08] LABS: Basophils Percent Auto 0.5 % (0.2-1.2); Eosinophils Absolute Auto 0.4 K/mm3 (0-0.3); Eosinophils Percent Auto 6.2 % (0-4.4); Hematocrit 34.8 % (37.0-47.0); Hemoglobin 10.8 g/dL (12.0-15.0); Immature Granulocyte Absolute 0.02 K/mm3 (0.00-0.031); Immature Granulocyte Percent A 0.3 % (0-0.5); Lymphocytes Absolute Auto 1.95 K/mm3 (0.9-3.2); Lymphocytes Percent Auto 32.7 % (18.3-44.2); Mean Corpuscular Hemoglobin 28.6 pg (26-34); Mean Corpuscular Volume 92.1 fl (80-100); Mean Platelet Volume 11.4 fl (7.4-10.4); Monocytes Absolute Auto 0.4 K/mm3 (0.1-0.6); Monocytes Percent Auto 7.4 % (2.6-8.5); Neutrophils Absolute Auto 3.2 K/mm3 (1.3-6.7); Neutrophils Percent Auto 52.9 % (45.5-73.1); Platelet Count Result 224 k/mm3 (150-375); Red Blood Count 3.78 M/mm3 (4.2-5.4); Red Cell Distribution Width 14.3 % (11.5-14.5)
[2022-03-09 07:17] LABS: Lactic Acid Reflex 0.8 mmol/L (0.7-2.0)
[2022-03-09 07:21] LABS: Alanine Aminotransferase 17 U/L (6-35); Albumin Level 3.8 g/dL (3.5-5.1); Alkaline Phosphatase 45 U/L (38-126); Anion Gap 6 mmol/L (8-16); Aspartate Amino Transferase 29 U/L (14-36); Bilirubin,Total 0.6 mg/dL (0.2-1.3); Blood Urea Nitrogen 14 mg/dL (7-17); Carbon Dioxide 26 mmol/L (22-30); Chloride 109 mmol/L (98-107); Estimated CRCL calculation 37 ml/min; Estimated Glomerular Filt Rate > 60; Glucose 96 mg/dL (65-110); Magnesium 1.5 mg/dL (1.6-2.3); Phosphorus 2.8 mg/dL (2.5-4.5); Potassium 3.5 mmol/L (3.4-5.0); Sodium 141 mmol/L (137-145)
[2022-03-09 09:11] LABS: Thyroid Stimulating Hormone Reflex 0.837 uIU/mL (0.465-4.68)
--- NOTE | 2022-03-09 10:10 | WPDNEURCNPN ---
Assessment and Plan Assessment and plan (1) Syncope and collapse: Code(s): R55 - Syncope and collapse Status: Acute (2) Slurred speech: Code(s): R47.81 - Slurred speech Status: Acute Plan Dalila Rowe is a 81 year old female with a history of COPD, hypothyroidism, HLD, HTN, and diabetes melitis who presented after a syncopal episode. Etiology of syncope is unclear. Work up so far has been reassuring. No acute stroke or evidence of intracranial vessel disease. Carotid studies are still pending. Suspicion for seizure is low based on description of the episode. Most likely cause is vasovagal syncope due to hot shower. Patient's son also expressed that patient does not drink very much fluid. - Carotid Doppler is pending - EEG not indicated at this time based on description of episode. I have provided son with Neurology office number. I can follow with her as outpatient in case she does have subsequent syncopal episodes Consult date: 03/09/22 Time Seen: 10:10 Reason for consult: Syncope HPI: Dalila Rowe is a 81 year old female with a history of COPD, hypothyroidism, HLD, HTN, and diabetes melitis who presented after a syncopal episode. Patient was in her usual state of healthy on 03/08 when she went to take a shower. She completed her shower and felt fine during, but right afterwards she started to complain of lower back pain and feeling lightheaded. Daughter was with her at the time and reported that patient did lose consciousness while she was sitting down. It is unknown how long she lost consciousness. There are no reports of any seizure like activity. EMS was called and patient was taken to [facility]. On arrival she had garbled speech and was AOx2. She was complaining of abdominal pain. Her CT brain and CTA brain was negative. Her BP was in the 140s and EKG showed sinus rhythm. Since she was within the window for tPA, cased was discussed by ED with [facility] stroke team who recommended against tPA since the symptoms did not seem consistent with stroke and appeared to be resolving. On re-evaluation patient was back to baseline and AOx4. She had an MRI brain done which was negative for acute stroke. CTA of carotid was limited so carotid Doppler has been ordered and pending. Surface echo has not been done during this admission. Orthostatics have been ordered as well. Patient feels back to baseline this morning. She denies any present lightheadedness. Review of Systems Constitutional: Constitutional: Reports no additional constitutional complaints Eyes: Eyes: Reports no additional eye complaints ENT: Reports system reviewed and no additional complaints, except as documented Cardiovascular: Cardiovascular: Reports no additional cardiovascular complaints Respiratory: Respiratory: Reports no additional respiratory complaints Gastrointestinal: Gastrointestinal: Reports abdominal pain Genitourinary: Genitourinary: Reports no additional female genitourinary complaints Musculoskeletal: Musculoskeletal: Reports no additional musculoskeletal complaints Integumentary/Breasts: Skin/Breast: Reports system reviewed and no additional complaints, except as docu Neurologic: Reports as per HPI Psychiatric: Psychiatric: Reports no additional psychiatric complaints PMFSH Past Medical History Medical History Asthma COPD (chronic obstructive pulmonary disease) History of diverticulitis 2013 - Hospitalized and treated for acute diverticulitis suspected to be small bowel diverticulitis with microperforation. Treated with antibiotics. History of kidney stones 2008 Hyperlipidemia Hypertension Hypothyroid Palpitation Pre-diabetes Surgical History Surgical History H/O: section 2 History of cystoscopy 2008 for ureteral stone that was extracted Status post left breast lumpectomy Family History Family Hi
[2022-03-09 10:21] LABS: Glucose Point of Care 107 mg/dl (65-105)
[2022-03-09] MEDS: atenoloL 50 MG TABLET PO (10:28)
[2022-03-09] MEDS: ASPIRIN 81 MG CHEWABLE TABLET PO (10:28)
[2022-03-09] MEDS: FLUTICASONE PROPIONATE 0.05% NA SPR 16 GM BTL (*BKC) 1 SPRAY NASAL (10:28)
[2022-03-09] MEDS: metFORMIN HCL 500 MG TABLET PO (10:28)
[2022-03-09] MEDS: ESCITALOPRAM OXALATE 5 MG TABLET PO (10:29)
[2022-03-09] MEDS: LEVOTHYROXINE SODIUM 50 MCG TABLET PO (10:29)
[2022-03-09] MEDS: PANTOPRAZOLE SODIUM IV 40 MG VIAL IV PUSH (10:30)
[2022-03-09] MEDS: SIMVASTATIN 20 MG TABLET PO (10:30)
--- NOTE | 2022-03-09 10:32 | PC.NURSE ---
Patient off the floor for MRI and US from 8.30 to 10 am. All morning medications given late at 1030.
[2022-03-09 13:48] LABS: Glucose Point of Care 107 mg/dl (65-105)
--- NOTE | 2022-03-09 16:20 | PM.DS ---
DS: Admitting Diagnosis Discharge Date 03/09/22 Admitting Diagnosis Possible CVA DS: Discharge Diagnosis Discharge Diagnosis (1) Syncope and collapse: Code(s): R55 - Syncope and collapse Status: Acute (2) Slurred speech: Code(s): R47.81 - Slurred speech Status: Acute (3) Cholelithiasis: Code(s): K80.20 - Calculus of gallbladder without cholecystitis without obstruction Status: Acute (4) Hypertension: Qualifiers: Hypertension type: unspecified Qualified Code(s): I10 - Essential (primary) hypertension Code(s): I10 - Essential (primary) hypertension Status: Chronic (5) Hypothyroid: Qualifiers: Hypothyroidism type: unspecified Qualified Code(s): E03.9 - Hypothyroidism, unspecified Code(s): E03.9 - Hypothyroidism, unspecified Status: Chronic (6) COPD (chronic obstructive pulmonary disease): Code(s): J44.9 - Chronic obstructive pulmonary disease, unspecified Status: Acute (7) Pre-diabetes: Code(s): R73.03 - Prediabetes Status: Acute (8) Compression fracture of L1 lumbar vertebra: Code(s): S32.010A - Wedge compression fracture of first lumbar vertebra, initial encounter for closed fracture Status: Acute DS: Summary Hospital Course Reason for hospitalization: 81yo female with HTN and DM here for possible stroke like symptoms. Please see H&P for detials Hospital Course: Patient developed weakness and possible syncope after taking shower. She was brought to the emergency room and while there patient was confused with garbled speech. Influenza and COVID was negative. CTA of the head neck was limited due to motion but showed no significant findings. She did have evidence of acute sinusitis. Patient had been treated for sinus infection about a month ago. CT of the head showed no acute findings. She did have a brain MRI which again shows no acute findings except possible acute sinusitis. Carotid Doppler ultrasound was performed showing less than 50% stenosis in the bilateral internal carotid arteries. Echocardiogram was ordered and is pending. Chest x-ray was clear. She was having abdominal pain and a CT of the abdomen pelvis showed no acute intra-abdominal findings. She did have a new [id number] L1 compression fracture when compared to imaging from May of this year. Patient does not complain of back pain. Urinalysis showed moderate findings but did not prompt for culture. She had a mild eosinophilia noted. TSH was normal. A1c was 6.4. [place] symptoms may be related to hot shower and vasodilation. Daughter in the room. She states the patient has been up ambulating to the bathroom without difficulty. She feels the patient is back to her baseline. Patient was started on Lexapro recently and this has been stopped by the family because of minor confusion. Neurology did see the patient but did not recommend EEG. They will follow up with the patient in the clinic. Patient overall did well date of discharge home on 03/09/2022. Status at Discharge Cognitive/behavioral status at discharge: stable Time Spent with Patient Time attestation: Total time spent providing and/or coordinating discharge services: 34 minutes Time spent: Greater than 30 minutes Exam Narrative: AF 96.8 155/53 74 16 97% ra Gen - NARD Chest - left basilar rhonchi o/w clear CV - RRR S1/S2 Abd - Soft, ND, mild epigastric pain Ext - No pedal edema Neuro - non focal Psych - Nml mood and affect Skin - Warm and dry DS: Data Data Completed and Pending Labs on day of discharge: Labs from last 24 hours 03/09/22 03/09/22 03/09/22 13:44 10:17 06:38 WBC RBC Hgb Hct MCV MCH MCHC RDW Plt Count MPV Immature Gran % (Auto) Neut % (Auto) Lymph % (Auto) Prentiss % (Auto) Eos % (Auto) Baso % (Auto) Lymph # (Auto) Prentiss # (Auto) Eos # (Auto)
--- NOTE | 2022-03-16 13:42 | PC.NURSE ---
Echo results faxed to PCP.
== END 2022-03-09 17:23 | disposition home health service (06) ==
LOC: ANHED 18:27 → ANH3MED 03-09 11:35 → ANH3MEDSUR 03-11 15:12
PROVIDERS: Nurse Practitioner; Admitting Provider Family Medicine; Emergency Provider General Practice; PCP Student in an Organized Health Care Education/Training Program; Visit Provider Internal Medicine
DX: R55 Syncope and collapse (principal); R47.81 Slurred speech; K80.20 Calculus of gallbladder without cholecystitis without obstruction; R73.03 Prediabetes; R10.9 Unspecified abdominal pain; I11.9 Hypertensive heart disease without heart failure; E03.9 Hypothyroidism, unspecified; K57.92 Diverticulitis of intestine, part unspecified, without perforation or abscess without bleeding; J44.9 Chronic obstructive pulmonary disease, unspecified; E78.5 Hyperlipidemia, unspecified; M54.50 Low back pain, unspecified; S32.010A Wedge compression fracture of first lumbar vertebra, initial encounter for closed fracture; K57.50 Diverticulosis of both small and large intestine without perforation or abscess without bleeding; K44.9 Diaphragmatic hernia without obstruction or gangrene; R90.82 White matter disease, unspecified; Z20.822 Contact with and (suspected) exposure to COVID-19; I70.0 Atherosclerosis of aorta; J01.90 Acute sinusitis, unspecified; M85.80 Other specified disorders of bone density and structure, unspecified site; Z66 Do not resuscitate; R94.31 Abnormal electrocardiogram [ECG] [EKG]; Z86.73 Personal history of transient ischemic attack (TIA), and cerebral infarction without residual deficits; Z87.891 Personal history of nicotine dependence; Z87.442 Personal history of urinary calculi; Z79.51 Long term (current) use of inhaled steroids; Z79.84 Long term (current) use of oral hypoglycemic drugs; Z79.899 Other long term (current) drug therapy; Z83.3 Family history of diabetes mellitus
CPT/HCPCS: 36415; 70450; 70496; 70498; 70553; 71045; 74176; 80053; 81001; 82948; 83036; 83605; 83690; 83735; 84100; 84443; 84484; 85025; 85055; 85610; 85730; 87636; 93005; 93306; 93880; 96361; 96374; 99285; A9270; A9577; C9113; G0378; J7030; Q9967

== ENCOUNTER → 2022-10-11 09:49 | Outpatient (CLI) | payer OTHER, SELFPAY ==
--- NOTE | ~2022-10-11 | XR_ITS ---
Clinical Indication: Other specified symptoms and signs of the circulatory system PA and lateral views of the chest: Comparison: 03/08/2022 Findings: The lungs are clear, without evidence of focal consolidation or pleural effusion. Probable COPD. Cardiomediastinal silhouette is within normal limits. Bones and soft tissues are unremarkable. Impression: Probable COPD or other mild chronic interstitial disease. No consolidation or pleural effusion. Reviewed, dictated and finalized at location . Impression: Probable COPD or other mild chronic interstitial disease. No consolidation or pleural effusion.
== END ==
PROVIDERS: PCP Registered Nurse; Visit Provider Registered Nurse
DX: R09.89 Other specified symptoms and signs involving the circulatory and respiratory systems (principal); R91.8 Other nonspecific abnormal finding of lung field
CPT/HCPCS: 71046